=== PATIENT | male | born 1955 | race Caucasian/White ===

== ENCOUNTER 2024-07-01 19:13 | Inpatient (IN) | payer MEDICARE, MEDICAID ==
[~2024-07-01] VITALS: Ht 172.7 cm; Wt 96.0 kg
--- NOTE | 2024-07-01 19:56 | ED.PDOC ---
General HPI Comments 69 year old male brought in by EMS presents to the ED with a chief complaint of hematuria onset 2 days. Patient states he has been experiencing hematuria for the past 2 days, began experiencing dysuria with burning sensation today. Patient has a suprapubic catheter in place for the past 3 years due to frequent UTIs related to a previous indwelling urethral catheter. Patient also states he is currently on eliquis due to DVT on RT leg. PMHx DVT, prostate cancer. Denies chest pain, shortness of breath, nausea, vomiting, diarrhea, dizziness, headache. No other symptoms or modifying factors present at this time. Chief Complaint: Urinary Time Seen by MD: 19:21 Reviewed notes: Medications, Allergies Allergies: Coded Allergies: Acetaminophen (Verified Allergy, Unknown, 07/01/24) Diphenhydramine (Verified Allergy, Unknown, 07/01/24) Hydrocodone (Verified Allergy, Unknown, 07/01/24) Oxycodone (Verified Allergy, Unknown, 07/01/24) Propoxyphene (Verified Allergy, Unknown, 07/01/24) Information Source: Patient, Emergency Med Personnel Mode of Arrival: EMS Severity: Moderate Timing: Days Duration: Since onset Prehospital treatment: None Onset: Spontaneous Symptoms: Dysuria, Hematuria History of: UTI, Suprapubic catheter Location: Suprapubic Penile discharge: None Modifying factors: None associated signs and symptoms: Dysuria, Hematuria Past Medical History PAST MEDICAL HISTORY: Cancer (prostate) Past Medical History (Other): DVT Surgical History: Appendectomy, Pacemaker, Tonsillectomy Surgical History (Other): suprapubic catheter Family History Family History: Unknown Social History Smoker: Non-Smoker Alcohol: Denies ETOH Use Drugs: Denies Drug Use Lives In: Home Constitutional: denies: chills, diaphoresis, fatigue, fever, malaise, sweats, weakness, others EENTM: denies: blurred vision, double vision, ear bleeding, ear discharge, ear drainage, ear pain, ear ringing, eye pain, eye redness, hearing loss, mouth pain, mouth swelling, nasal discharge, nose bleeding, nose congestion, nose pain, photophobia, tearing, throat pain, throat swelling, voice changes, others Respiratory: denies: cough, hemoptysis, orthopnea, SOB at rest, shortness of breath, SOB with excertion, stridor, wheezing, others Cardiovascular: denies: chest pain, dizzy spells, diaphoresis, Dyspnea on exertion, edema, irregular heart beat, left arm pain, lightheadedness, palpitations, PND, syncope, others Gastrointestinal: denies: abdomen distended, abdominal pain, blood streaked bowels, constipated, diarrhea, dysphagia, difficulty swallowing, hematemesis, melena, nausea, poor appetite, poor fluid intake, rectal bleeding, rectal pain, vomiting, others Genitourinary: reports: burning, dysuria, hematuria, pain; denies: flank pain, frequency, incontinence, penile discharge, penile sore, testicle pain, testicle swelling, urgency, others Neurological: denies: dizziness, fainting, headache, left sided numbness, left sided weakness, numbness, paresthesia, pre-existing deficit, right sided numbness, right sided weakness, seizure, speech problems, tingling, tremors, weakness, others Musculoskeletal: reports: others (RT leg swelling); denies: back pain, gout, joint pain, joint swelling, muscle pain, muscle stiffness, neck pain Integumetry: denies: bruises, change in color, change in hair/nails, dryness, laceration, lesions, lumps, rash, wounds, others Allergic/Immunocompromised: denies: Difficulty Healing, Frequent Infections, Hives, Itching, others Hematologic/Lymphatic: denies: anemia, blood clots, easy bleeding, easy bruising, swollen glands, others Endocrine: denies: excessive hunger, excessive sweating, excessive thirst, excessive urination, flushing, intolerance to cold, intolerance to heat, unexplained weight gain, unexplained weight loss, others Psychiatric: denies: anxiety, bipolar disorder, depression, hopeless, panic disorder, schizophrenia, sleepless, suicidal, others All Other Systems: Reviewed and Negative Physical Exam General Appearance: No Apparent Distress HEENT: Other, NOT DONE (Pupils and face symmetric, moist mucous membranes) Neck: Full Range of Motion, Non-Tender, Normal Inspection, Supple Respiratory: Lungs Clear, No Accessory Muscle Use, No Respiratory Distress, Normal Breath Sounds Cardiovascular: No JVD, Tachycardia Breast Exam: Deferred Gastrointestinal: Soft, Tenderness (Suprapubic and bilateral flank) Genitalia: Deferred Pelvic: Deferred Rectal: Deferred Extremities: Leg edema, Normal inspection, Normal range of motion, Pedal edema Neurologic: Alert (Oriented x4), Normal Affect, Normal Mood, Other (Moves all extremities. No gross focal deficit.) Cerebellar Function: NOT DONE Reflexes: NOT DONE Skin: Dry, Normal Color, Warm Lymphatic: NOT DONE Was a procedure done? Was a procedure done?: No Differential Diagnosis Kidney stone (Female): Bowel obstruction, Pyelonephritis, Renal failure, Urolithiasis Kidney stone (Male): Appendicitis train, Renal infarction Penile/Scrotal: UTI Urinary Problem (Male): Prostatitis, Urethritis X-Ray, Labs, Meds, VS Vital Signs Date Time Temp Pulse Resp B/P (MAP) Pulse Ox O2 Delivery O2 Flow Rate FiO2 07/01/24 21:45 97.5 60 16 110/61 (77) 98 97.5 07/01/24 21:45 60 16 98 Room Air* 0 21 07/01/24 19:13 98.5 71 71 132/62 (85) 100 Lab Test 07/01/24 21:17 Range/Units White Blood Count 7.0 4.4-10.8 10^3/uL Red Blood Count 4.34 L 4.5-5.90 10^6/uL Hemoglobin 14.4 13.5-17.5 g/dL Hematocrit 42.4 41.0-53.0 % Mean Corpuscular Volume 97.7 80.0-100.0 fL Mean Corpuscular Hemoglobin 33.3 H 28.0-32.0 pg Mean Corpuscular Hemoglobin Concent 34.1 32.0-36.0 g/dL Red Cell Distribution Width 12.6 11.8-14.3 % Platelet Count 213 140-450 10^3/uL Mean Platelet Volume 8.3 6.9-10.8 fL Neutrophils (%) (Auto) 62.0 37.0-80.0 % Lymphocytes (%) (Auto) 26.1 10.0-50.0 % Monocytes (%) (Auto) 9.0 0.0-12.0 % Eosinophils (%) (Auto) 1.7 0.0-7.0 % Basophils (%) (Auto) 1.2 0.0-2.0 % Neutrophils # (Auto) 4.4 1.6-8.6 10 ^3/uL Lymphocytes # (Auto) 1.8 0.4-5.4 10 ^3/uL Monocytes # (Auto) 0.6 0-1.3 10 ^3/uL Eosinophils # (Auto) 0.1 0-0.8 10 ^3/uL Basophils # (Auto) 0.1 0-0.2 10 ^3/uL Nucleated Red Blood Cells 0.1 % Prothrombin Time 12.2 H 9.3-11.8 sec Prothrombin Time INR 1.17 H 0.9-1.15 Activated Partial Thromboplast Time 35.9 H 24.5-34.5 SEC Sodium Level 139 136-145 mmol/L Potassium Level 2.4 *L 3.5-5.1 mmol/L Chloride Level 102 98-107 mmol/L Carbon Dioxide Level 28 20-31 mmol/L Anion Gap 9 5-15 Blood Urea Nitrogen 10 9-23 mg/dL Creatinine 0.92 0.700-1.30 mg/dL Glomerular Filtration Rate Calc 89 >90 mL/min BUN/Creatinine Ratio 10.9 10.0-20.0 Serum Glucose 145 H 74-106 mg/dL Lactic Acid Level 1.8 0.4-2.0 mmol/L Calcium Level 8.9 8.7-10.4 mg/dL Magnesium Level 1.7 1.6-2.6 mg/dL Total Bilirubin 0.9 0.2-1.0 mg/dL Aspartate Amino Transferase (AST) 23 13-40 U/L Alanine Aminotransferase (ALT) 19 7-40 U/L Alkaline Phosphatase 91 46-116 U/L B-Type Natriuretic Peptide 84.95 0-100 pg/mL Total Protein 6.3 5.7-8.2 g/dL Albumin 4.0 3.2-4.8 g/dL Thyroid Stimulating Hormone (TSH) 0.29 L 0.55-4.78 uIU/mL Current Medications Medications (Trade) Dose Ordered Sig/Katharina Route Start Time Stop Time Status Last Admin Tramadol HCl (Ultram) 50 mg ONCE ONCE PO 07/01/24 20:00 07/01/24 20:01 DC 07/01/24 22:44 Ceftriaxone Sodium 50 ml @ 100 mls/hr ONCE ONCE IV 07/01/24 20:00 07/01/24 20:29 DC 07/01/24 22:44 Sodium Chloride 1,000 ml @ 1,000 mls/hr Q1H ONCE IV 07/01/24 20:00 07/01/24 20:59 DC 07/01/24 22:44 Potassium Bicarbonate (Klor-Con/Ef) 50 meq ONCE ONCE PO 07/01/24 22:15 07/01/24 22:20 DC 07/01/24 22:45 Potassium Chloride 100 ml @ 50 mls/hr ONCE ONCE IV 07/01/24 22:15 07/02/24 00:14 DC 07/01/24 23:16 ORDERING PHYSICIAN: LIBERTAD HARKINS MD PROCEDURE(s): ABPL - CT AB PEL WO CON-NO ORAL OR IV REASON: hematuria, suprapubic pain ORDER NUMBER(s): [id number], ACCESSION NUMBER(s): [id number] Exam: CT CT AB PEL WO CON-NO ORAL OR IV History: hematuria, suprapubic pain Comparison Study: None TECHNIQUE: Multidetector CT of the abdomen and pelvis was performed from lung bases to pubic symphysis. Imaging was performed without IV contrast. Axial, coronal, and sagittal multiplanar reformats were obtained from the axial data set by the technologist. RADIATION DOSE: DLP 636.43 mGy.cm; CTDI vol 9.79 mGy. Findings: Lungs: The lung bases are clear. Heart: No cardiomegaly or pericardial effusion. Liver: Unremarkable. Gallbladder: Unremarkable. Spleen: Unremarkable Pancreas: Unremarkable Adrenals: Unremarkable Kidneys: Right renal cysts. Nonobstructive left nephrolithiasis. GI tract: Unremarkable : Suprapubic catheter. Urinary bladder is otherwise unremarkable. Vasculature: Mild aortoiliac atherosclerosis. Lymphadenopathy: Absent Peritoneum: No ascites Musculoskeletal: Mild multilevel degenerative changes of the thoracolumbar spine. Soft tissues: Left lower quadrant pump generator with two catheters. One traverses the spinal canal superiorly. The second is disconnected in the posterior soft tissues with the intraspinal portion terminating at L2. Impression: 1. No acute abdominopelvic abnormalities. 2. Suprapubic catheter within an unremarkable urinary bladder. 3. Left lower quadrant pump generator with two catheters. One traverses the spinal canal superiorly. The second is disconnected in the posterior soft tissues with the intraspinal portion terminating at L2. Correlate for proper functionality. ATED BY: MELISSA CRAIG DO DICTATED DATE/TIME: 07/01/242120 SIGNED BY: MLEISSA CRAIG DO SIGNED DATE/TIME: 07/01/242120 X-Ray, Labs, Meds, VS Comment 69-year-old male with history of prostate cancer and VTE and indwelling suprapubic catheter complaining of suprapubic pain, dysuria and hematuria Vitals unremarkable Exam remarkable for suprapubic tenderness Rhythm strip independently interpreted by me: Sinus rhythm, rate 71, no ectopy. CT abdomen and pelvis Impression: 1. No acute abdominopelvic abnormalities. 2. Suprapubic catheter within an unremarkable urinary bladder. 3. Left lower quadrant pump generator with two catheters. One traverses the spinal canal superiorly. The second is disconnected in the posterior soft tissues with the intraspinal portion terminating at L2. Correlate for proper functionality. CBC unremarkable, metabolic panel remarkable for potassium 2.8, lactate normal, UA abnormal consistent with UTI Patient treated with the following in the ED: 1 L 0.9 normal saline IV bolus, Rocephin 1 g IV, tramadol 50 mg p.o., potassium effervescent 50 mEq p.o., K rider 20 mEq IV On re-evaluation, patient states pain has improved. Vitals were stable. Plan is to admit the patient for IV antibiotics and electrolyte correction Time of 1ST Reevaluation: 19:51 Reevaluation 1ST: Unchanged Patient Education/Counseling: Diagnosis, Treatment, Prognosis Family Education/Counseling: No Family Present Additional Information The following tests were ordered, and results were reviewed by me: CBC, CMP, UA, CT AB PEL WO CON, BLOOD CULTURE, URINE BACTERIAL CULTURE, LA W/ REFLEX I reviewed and agreed with the following test results read by other providers: CT AB PEL WO CON Additional Information was gathered from interviewing the following independent historians: EMS I discussed treatment and results with medical personnel and: patient Departure 1 Departure Time of Disposition: 22:09 Impression: Primary Impression: UTI (urinary tract infection) Qualified Codes: N39.0 - Urinary tract infection, site not specified; R31.9 - Hematuria, unspecified Additional Impression: Hypokalemia Disposition: ADMITTED INPATIENT Admit to: Med Surg Condition: Guarded Critical Care Note Critical Care Time?: No Stability Stability form required: No Heart Score Heart Score: Heart Score Response (Comments) Value History N/A 0 EKG N/A 0 Age N/A 0 Risk Factors N/A 0 Troponin N/A 0 Total 0 I personally scribed for LIBERTAD HARKINS MD ([email or web address]) on 07/01/24 at 19:56. Electronically submitted by Karen Loyd ([email or web address]). I personally scribed for LIBERTAD HARKINS MD ([email or web address]) on 07/01/24 at 20:12. Electronically submitted by Karen Loyd ([email or web address]). I personally scribed for LIBERTAD HARKINS MD ([email or web address]) on 07/01/24 at 21:45. Electronically submitted by Karen Loyd ([email or web address]). LIBERTAD HARKINS MD Jul 01, 2024 19:56
--- NOTE | 2024-07-01 21:23 | DVH ---
Exam: CT CT AB PEL WO CON-NO ORAL OR IV History: hematuria, suprapubic pain Comparison Study: None TECHNIQUE: Multidetector CT of the abdomen and pelvis was performed from lung bases to pubic symphysi s. Imaging was performed without IV contrast. Axial, coronal, and sagittal multiplanar reformats were obtained from the axial data set by the technologist. RADIATION DOSE: DLP 636.43 mGy.cm; CTDI vol 9.79 mGy. Findings: Lungs: The lung bases are clear. Heart: No cardiomegaly or pericardial effusion. Liver: Unremarkable. Gallbladder: Unremarkable. Spleen: Unremarkable Pancreas: Unremarkable Adrenals: Unremarkable Kidneys: Right renal cysts. Nonobstructive left nephrolithiasis. GI tract: Unremarkable : Suprapubic catheter. Urinary bladder is otherwise unremarkable. Vasculature: Mild aortoiliac atherosclerosis. Lymphadenopathy: Absent Peritoneum: No ascites Musculoskeletal: Mild multilevel degenerative changes of the thoracolumbar spine. Soft tissues: Left lower quadrant pump generator with two catheters. One traverses the spinal canal s uperiorly. The second is disconnected in the posterior soft tissues with the intraspinal portion term inating at L2. Impression: 1. No acute abdominopelvic abnormalities. 2. Suprapubic catheter within an unremarkable urinary bladder. 3. Left lower quadrant pump generator with two catheters. One traverses the spinal canal superiorly. The second is disconnected in the posterior soft tissues with the intraspinal portion terminating at L2. Correlate for proper functionality.
[2024-07-01 21:32] LABS: Basophils # (auto) 0.1 10 ^3/uL (0-0.2); Basophils % (auto) 1.2 % (0.0-2.0); Eosinophils # (auto) 0.1 10 ^3/uL (0-0.8); Eosinophils % (auto) 1.7 % (0.0-7.0); Hematocrit 42.4 % (41.0-53.0); Hemoglobin 14.4 g/dL (13.5-17.5); Lymphocytes # (auto) 1.8 10 ^3/uL (0.4-5.4); Lymphocytes % (auto) 26.1 % (10.0-50.0); Mean Corpuscular Hemoglobin 33.3 pg (28.0-32.0); Mean Corpuscular Hgb Conc. 34.1 g/dL (32.0-36.0); Mean Corpuscular Volume 97.7 fL (80.0-100.0); Monocytes # (auto) 0.6 10 ^3/uL (0-1.3); Neutrophils # (auto) 4.4 10 ^3/uL (1.6-8.6); Nucleated Red Blood Cells % 0.1 %; Platelet Count (auto) 213 10^3/uL (140-450); Red Blood Cells 4.34 10^6/uL (4.5-5.90); Red Cell Distribution Width 12.6 % (11.8-14.3)
[2024-07-01 21:42] LABS: Alanine Aminotransferase 19 U/L (7-40); Alkaline Phosphatase 91 U/L (46-116); Anion Gap 9 (5-15); Aspartate Aminotransferase 23 U/L (13-40); BUN/Creatinine Ratio 10.9 (10.0-20.0); Blood Urea Nitrogen 10 mg/dL (9-23); Calcium 8.9 mg/dL (8.7-10.4); Carbon Dioxide 28 mmol/L (20-31); Chloride 102 mmol/L (98-107); Sodium 139 mmol/L (136-145)
[2024-07-01 21:43] LABS: Bilirubin, Total 0.9 mg/dL (0.2-1.0); Total Protein 6.3 g/dL (5.7-8.2)
[2024-07-01 21:45] VITALS: PULSE 60; RESP 16; O2SAT 98
[2024-07-01 21:46] LABS: Glucose 145 mg/dL (74-106)
[2024-07-01 21:47] LABS: Potassium 2.4 mmol/L (3.5-5.1)
[2024-07-01] MEDS: traMADol HCL 50 MG TAB PO ONE (22:44)
[2024-07-01] MEDS: SODIUM CHLORIDE 0.9% 1,000 ML IV ONE (22:44)
[2024-07-01] MEDS: cefTRIAXone 1GM/50ML D5W 50 ML IV ONE (22:44)
[2024-07-01] MEDS: POTASSIUM EFFERVESENT TAB 25 MEQ PO ONE (22:45)
[2024-07-01] MEDS ORDERED: NITROGLYCERIN 0.4 MG SL TAB SL PRN (22:45)
[2024-07-01] MEDS ORDERED: MORPHINE SULFATE INJ 2 MG/ml SYRG IV PRN (22:45)
[2024-07-01] MEDS: POTASSIUM CHL 20MEQ/100ML 100 ML IV ONE (23:16)
[2024-07-01] MEDS: POTASSIUM CHL 20MEQ/100ML 100 ML IV SCH (23:30)
[2024-07-01 23:49] LABS: INR 1.17 (0.9-1.15); Partial Thromboplastin Time 35.9 SEC (24.5-34.5); Prothrombin Time 12.2 sec (9.3-11.8)
--- NOTE | 2024-07-02 00:03 | DVH ---
Bilateral lower extremity venous duplex Clinical History: h/o DVT Comparison: None available Technique: Duplex Doppler evaluation of the deep venous systems of both lower extremities from the common femora l veins to the popliteal veins including color Doppler and spectral/pulsed waveform analysis was perf ormed. Findings: RIGHT SIDE: The common femoral vein demonstrates appropriate compressibility and waveform variability. There is compressibility/patency of the great saphenous vein at the proximal thigh. The femoral vein demonstrates appropriate compressibility and waveform variability. The deep femoral vein demonstrates appropriate compressibility and waveform variability. The popliteal vein demonstrates appropriate compressibility and waveform variability. There is normal compressibility at the tibioperoneal trunk. LEFT SIDE: The common femoral vein demonstrates appropriate compressibility and waveform variability. There is compressibility/patency of the great saphenous vein at the proximal thigh. The femoral vein demonstrates appropriate compressibility and waveform variability. The deep femoral vein demonstrates appropriate compressibility and waveform variability. The popliteal vein demonstrates appropriate compressibility and waveform variability. There is normal compressibility at the tibioperoneal trunk. Impression: 1. No right or left femoropopliteal venous thrombosis.
[2024-07-02 00:08] LABS: Urine Bacteria None Seen /hpf (None Seen)
[2024-07-02] MEDS: POTASSIUM EFFERVESENT TAB 25 MEQ PO ONE (00:33)
[2024-07-02 00:34] LABS: Opiate Scree,Urine Neg (NEGATIVE); Phencyclidine Screen, Urine Neg (NEGATIVE)
[2024-07-02 00:36] LABS: Amphetamine Screen, Urine Neg (NEGATIVE); Barbiturate Scree,Urine Neg (NEGATIVE); Benzodiazephine Screen, Urine Neg (NEGATIVE); Cannabinoid Screen, Urine Neg (NEGATIVE); Cocaine Screen, Urine Neg (NEGATIVE)
[2024-07-02 00:40] LABS: Urine Blood 3+ /uL (Negative); Urine Clarity Ex.Turbid (Clear); Urine Color Dark-Red (Yellow); Urine Protein, UAD 2+ (Negative); Urine Specific Gravity 1.026 (1.001-1.035); Urine Squamous Epithelial Cell None Seen /hpf (<5); Urine Urobilinogen Normal (Negative); Urine WBC 1048 /HPF (0-3); Urine pH 6.5 (5.0-9.0)
--- NOTE | 2024-07-02 00:58 | DVHHPRES ---
History of Present Illness Resident Creating Document: SARA HYMAN RESIDENT History of Present Illness Adryan Nowak is a 69-year-old male with a PMH of hypertension, CHF, pacemaker, DE x3 FELICITY, DVT, Podiatry, status post resection, prostate cancer status post radiation presented to the ED with the chief complaints of hematuria and burning micturition since 1 week prior to admission. Patient has suprapubic catheter in place but it is not functional due to urologist closed the port and advised, encouraged the patient to urinate through urethra. Initially he was doing fine med for past 1 week patient has been hematuria, burning sensation and difficulty urination patient brought him to visit ED. patient does report he have chronic right leg DVT for which he is on Eliquis since 2018 but recently the leg is more swollen and painful. On my assessment patient denies fever, nausea, vomiting, diaphoresis, abdominal pain pain and other acute associated symptoms. PMH: HTN since 17 years old(metoprolol ), 2 times DE x3 FELICITY at 44 years old, thyroid tumor status post resection at 27 years old, pacemaker 11 years ago, DVT since 2018 on Eliquis, prostate cancer status post radiation 2 years back PSH: Thyroidectomy, pacemaker implantation Family history: Prostate cancer and a DE in brother, AFib in father Social history: Lives with family. Denies smoking, alcohol and other drug abuse Allergies: Acetaminophen diphenhydramine hydrocodone, oxycodone, propoxyphene Home medications: Levothyroxine 150, omeprazole 20, aspirin 81, oxybutynin chloride 5, metoprolol tartrate 25 mg, furosemide 20 mg, tizanidine 2, KCl 10 mEq, Lipitor 40, digoxin 125, Eliquis 5 mg, hydroxyzine 25 mg, tramadol 50 mg Review of Systems Review of Systems Patient seen and examined at the bedside. Patient currently having lower abdominal pain, right lower extremity pain, edema. Ordered DVT scan. Patient started on Rocephin for now. Pending urinalysis and urine cultures. Constitutional: Yes: Weakness, Malaise Eyes: No: Pain, Vision change, Conjunctivae inflammation, Eyelid inflammation, Other, Redness ENT: No: Ear pain, Ear discharge, Nose pain, Nose discharge, Nose congestion, Mouth pain, Mouth swelling, Throat pain, Throat swelling, Other Respiratory: No: Cough, Dry, Shortness of breath, SOB with excertion, Wheezing, Hemoptysis, Pleuritic Pain, Sputum, Wheezing, Other Cardiovascular: Edema; No: Chest Pain, Palpitations, Orthopnea, Paroxysmal Noc. Dyspnea, Lt Headedness, Other Gastrointestinal: No: Nausea, Vomiting, Abdominal Pain, Diarrhea, Constipation, Melena, Hematochezia, Other Genitourinary: Dysuria, Frequency, Hematuria Musculoskeletal: No: other, neck pain, shoulder pain, arm pain, back pain, hand pain, leg pain, foot pain Skin: No: Rash, Lesions, Jaundice, Bruising, Other Neurological: No: Weakness, Numbness, Incoordination, Change in speech, Confusion, Seizures, Other Allergies: Coded Allergies: Acetaminophen (Verified Allergy, Unknown, 07/01/24) Diphenhydramine (Verified Allergy, Unknown, 07/01/24) Hydrocodone (Verified Allergy, Unknown, 07/01/24) Oxycodone (Verified Allergy, Unknown, 07/01/24) Propoxyphene (Verified Allergy, Unknown, 07/01/24) Medications Current Medications Medications Dose Ordered Sig/Katharina Route Start Time Stop Time Status Last Admin Dose Admin Sodium Chloride 10 ml Q8HR IV 07/02/24 06:00 Enoxaparin Sodium 40 mg DAILY SC 07/02/24 10:00 Acetaminophen 650 mg Q6HP PRN PO 07/01/24 22:45 UNV Morphine Sulfate 2 mg Q4HPRN PRN IV 07/01/24 22:45 UNV Nitroglycerin 0.4 mg Q5MINP PRN SL 07/01/24 22:45 Morphine Sulfate 2 mg Q30M PRN IV 07/01/24 22:45 UNV Pantoprazole Sodium 40 mg DAILY IV 07/02/24 10:00 Ceftriaxone Sodium 50 ml @ 100 mls/hr DAILY@2100 IV 07/02/24 21:00 Potassium Chloride 100 ml @ 50 mls/hr Q2H IV 07/02/24 00:15 07/02/24 04:14 UNV Potassium Chloride/Sodium Chloride 1,000 ml @ 75 mls/hr [id number] IV 07/02/24 00:15 UNV Exam Vital Signs Vital Signs Date Time Temp Pulse Resp B/P (MAP) Pulse Ox O2 Delivery O2 Flow Rate FiO2 07/01/24 21:45 97.5 60 16 110/61 (77) 98 97.5 07/01/24 21:45 Room Air* 0 21 Exam Pt is lying on bed General Appearance: Alert, Oriented X3, Cooperative, moderate distress due to pain HEENT: Atraumatic, Mucous membranes moist/pink Respiratory: Clear to auscultation, Normal air movement Cardiovascular: Regular rate, Normal S1, Normal S2 Abdominal: Active bowel sounds, Soft, no distention, mild suprapubic tenderness Extremities: Swollen, red, warmth, tender, pitting edema in RLE. 2+ pitting edema in LLE Skin: No Significant rash, except past surgical scars Neuro: Normal speech, sensorimotor deficits none Psych/Mental Status: Mental status NL, Mood NL Nurse was there as sharperone during examination Labs/Xrays Labs Test 07/01/24 23:58 07/01/24 23:27 07/01/24 21:17 Range/Units Urine Color Dark-red Yellow Urine Clarity Ex.turbid Clear Urine pH 6.5 5.0-9.0 Urine Specific [place] 1.026 1.001-1.035 Urine Protein 2+ H Negative Urine Ketones Negative Negative Urine Blood 3+ H Negative /uL Urine Nitrite Negative Negative Urine Bilirubin Negative Negative Urine Urobilinogen Normal Negative mg/dL Urine Leukocyte Esterase Trace Negative /uL Urine RBC [id number] 0 - 3 /hpf Urine Microscopic WBC 1048 H 0-3 /HPF Urine Squamous Epithelial Cells None seen <5 /hpf Urine Bacteria None seen None Seen /hpf Urine Glucose Normal Normal mg/dL Urine Opiates Screen Neg NEGATIVE Urine Fentanyl Screen Pos NEGATIVE Urine Barbiturates Screen Neg NEGATIVE Urine Phencyclidine Screen Neg NEGATIVE Urine Amphetamines Screen Neg NEGATIVE Urine Benzodiazepines Screen Neg NEGATIVE Urine Cocaine Screen Neg NEGATIVE Urine Cannabinoids Screen Neg NEGATIVE White Blood Count 7.0 4.4-10.8 10^3/uL Red Blood Count 4.34 L 4.5-5.90 10^6/uL Hemoglobin 14.4 13.5-17.5 g/dL Hematocrit 42.4 41.0-53.0 % Mean Corpuscular Volume 97.7 80.0-100.0 fL Mean Corpuscular Hemoglobin 33.3 H 28.0-32.0 pg Mean Corpuscular Hemoglobin Concent 34.1 32.0-36.0 g/dL Red Cell Distribution Width 12.6 11.8-14.3 % Platelet Count 213 140-450 10^3/uL Mean Platelet Volume 8.3 6.9-10.8 fL Neutrophils (%) (Auto) 62.0 37.0-80.0 % Lymphocytes (%) (Auto) 26.1 10.0-50.0 % Monocytes (%) (Auto) 9.0 0.0-12.0 % Eosinophils (%) (Auto) 1.7 0.0-7.0 % Basophils (%) (Auto) 1.2 0.0-2.0 % Neutrophils # (Auto) 4.4 1.6-8.6 10 ^3/uL Lymphocytes # (Auto) 1.8 0.4-5.4 10 ^3/uL Monocytes # (Auto) 0.6 0-1.3 10 ^3/uL Eosinophils # (Auto) 0.1 0-0.8 10 ^3/uL Basophils # (Auto) 0.1 0-0.2 10 ^3/uL Nucleated Red Blood Cells 0.1 % Prothrombin Time 12.2 H 9.3-11.8 sec Prothrombin Time INR 1.17 H 0.9-1.15 Activated Partial Thromboplast Time 35.9 H 24.5-34.5 SEC Sodium Level 139 136-145 mmol/L Potassium Level 2.4 *L 3.5-5.1 mmol/L Chloride Level 102 98-107 mmol/L Carbon Dioxide Level 28 20-31 mmol/L Anion Gap 9 5-15 Blood Urea Nitrogen 10 9-23 mg/dL Creatinine 0.92 0.700-1.30 mg/dL Glomerular Filtration Rate Calc 89 >90 mL/min BUN/Creatinine Ratio 10.9 10.0-20.0 Serum Glucose 145 H 74-106 mg/dL Lactic Acid Level 1.8 0.4-2.0 mmol/L Calcium Level 8.9 8.7-10.4 mg/dL Magnesium Level 1.7 1.6-2.6 mg/dL Total Bilirubin 0.9 0.2-1.0 mg/dL Aspartate Amino Transferase (AST) 23 13-40 U/L Alanine Aminotransferase (ALT) 19 7-40 U/L Alkaline Phosphatase 91 46-116 U/L B-Type Natriuretic Peptide 84.95 0-100 pg/mL Total Protein 6.3 5.7-8.2 g/dL Albumin 4.0 3.2-4.8 g/dL Thyroid Stimulating Hormone (TSH) 0.29 L 0.55-4.78 uIU/mL Assessment/Plan Assessment/Plan # hematuria # acute complicated UTI -ordered urinalysis -ordered urine culture, pending -currently giving Rocephin -consulted Urology # severe hypokalemia -monitor lab -currently under correction # history of prostate cancer status post radiation # H/o thyroid tumor status post resection -currently on levothyroxine # CHF unspecified type -ordered BNP, pending # H/o DVT -hold Eliquis for now -venous can showed no signs of DVT PUD PPX: Protonix VTE PPX: Lovenox Diet: Cardiac diet Goals of care discussed with the patient for more than 29 minutes: Full code sta tus Case discussed with Dr. Branch, patient and nurse Plan discussed with: Patient My Orders Orders - SARA HYMAN RESIDENT Procedure Category Date Status Time Admit ADMIT 07/01/24 Transmitted 22:41 Allergies NIMCO 07/01/24 In Process 22:41 Code Status CODE 07/01/24 Transmitted 22:41 Sodium Chloride Lock PHA 07/02/24 In Process (Saline Lock Ns) 06:00 Enoxaparin Sodium PHA 07/02/24 In Process (Lovenox) 10:00 Complete Blood Count LAB 07/02/24 Logged 04:00 Comprehensive LAB 07/02/24 Logged Metabolic Panel 04:00 Cardiac DIET 07/02/24 Transmitted Diet-2gna,Lofat,Lochol Breakfast Condition: Stable NIMCO 07/01/24 In Process 22:41 Acetaminophen Tablet PHA 07/01/24 In Process (Tylenol Tablet) 22:45 Morphine Sulfate PHA 07/01/24 In Process Injection 22:45 Nitroglycerin PHA 07/01/24 In Process Sublingual (Ntrostat 22:45 Morphine Sulfate PHA 07/01/24 In Process Injection 22:45 Oxygen By Nasal RT 07/01/24 Transmitted Cannula 22:41 Stat Ekg For Chest NIMCO 07/01/24 In Process Pain 22:41 Notify Of Changes NIMCO 07/01/24 In Process From Base 22:41 Sawmill Supervisor For NIMCO 07/01/24 In Process 24 Hours 22:41 Emergency Dysrhythmia NIMCO 07/01/24 In Process Protocol 22:41 Rhythm Strips Once NIMCO 07/01/24 In Process Every Shift 22:41 Bilat Lower Dvt US 07/01/24 Resulted 22:51 Rapid Influenza A&B LAB 07/01/24 Logged 22:51 Pantoprazole PHA 07/02/24 In Process (Protonix) 10:00 Ceftriaxone 1gm/50ml PHA 07/02/24 In Process D5w (Rocephin) 21:00 Potassium Chl PHA 07/02/24 In Process 20meq/100ml 00:15 Sod Chl 0.9%/ Kcl PHA 07/02/24 In Process 40meq 00:15 * Urology Consult CONS 07/02/24 Transmitted 00:08 Levothyroxine Tablet PHA 07/02/24 In Process (Synthroid Tablet) 06:00 Date of Service: Jul 01, 2024 Billing Provider: YAZMIN BRANCH MD Common Visit Codes: [id number] INP/OBS CARE (MOD), [id number] INP/OBS CARE (HIGH) SARA HYMAN RESIDENT Jul 02, 2024 00:58 YAZMIN BRANCH MD Jul 03, 2024 00:36
[2024-07-02] MEDS: MORPHINE SULFATE INJ 2 MG/ml SYRG IV PRN (01:20)
[2024-07-02] MEDS: hydrOXYzine 25 MG TAB or CAP PO ONE (04:20)
[2024-07-02 05:16] LABS: Rapid Influenza A Negative (Negative); Rapid Influenza B Negative (Negative)
[2024-07-02] MEDS: SODIUM CHLOR 0.9% PF (SALINE LOCK) 10ML VIAL/SYR IV SCH (06:07)
[2024-07-02] MEDS: LEVOTHYROXINE SODIUM 50 MCG TAB PO SCH (06:16)
[2024-07-02] MEDS: SOD CHL 0.9%/ KCL 40MEQ 1,000 ML IV SCH (06:34)
[2024-07-02 07:11] LABS: Basophils # (auto) 0.1 10 ^3/uL (0-0.2); Basophils % (auto) 0.9 % (0.0-2.0); Eosinophils # (auto) 0.1 10 ^3/uL (0-0.8); Eosinophils % (auto) 0.8 % (0.0-7.0); Hematocrit 39.5 % (41.0-53.0); Hemoglobin 13.5 g/dL (13.5-17.5); Lymphocytes # (auto) 1.7 10 ^3/uL (0.4-5.4); Lymphocytes % (auto) 22.1 % (10.0-50.0); Mean Corpuscular Hemoglobin 33.2 pg (28.0-32.0); Mean Corpuscular Hgb Conc. 34.2 g/dL (32.0-36.0); Mean Corpuscular Volume 97.1 fL (80.0-100.0); Monocytes # (auto) 0.7 10 ^3/uL (0-1.3); Monocytes % (auto) 9.2 % (0.0-12.0); Neutrophils # (auto) 5.1 10 ^3/uL (1.6-8.6); Nucleated Red Blood Cells % 0.2 %; Platelet Count (auto) 188 10^3/uL (140-450); Red Blood Cells 4.07 10^6/uL (4.5-5.90); Red Cell Distribution Width 12.7 % (11.8-14.3); White Blood Cell 7.6 10^3/uL (4.4-10.8)
[2024-07-02 07:26] LABS: Alanine Aminotransferase 16 U/L (7-40); Alkaline Phosphatase 70 U/L (46-116); Anion Gap 11 (5-15); BUN/Creatinine Ratio 11.4 (10.0-20.0); Blood Urea Nitrogen 9 mg/dL (9-23); Carbon Dioxide 23 mmol/L (20-31); Chloride 107 mmol/L (98-107); Sodium 141 mmol/L (136-145)
[2024-07-02 07:27] LABS: Albumin 3.7 g/dL (3.2-4.8); Aspartate Aminotransferase 26 U/L (13-40); Bilirubin, Total 1.1 mg/dL (0.2-1.0); Calcium 8.6 mg/dL (8.7-10.4); Glucose 125 mg/dL (74-106); Potassium 3.2 mmol/L (3.5-5.1)
[2024-07-02 07:28] LABS: Total Protein 5.8 g/dL (5.7-8.2)
[2024-07-02 07:35] VITALS: PULSE 64; RESP 21; O2SAT 99
[2024-07-02] MEDS: MAGNESIUM SULFATE 1GM/100ML 100 ML IV ONE (09:23)
[2024-07-02] MEDS: PANTOPRAZOLE 40 MG/10 ML VIAL INJ IV SCH (10:27)
[2024-07-02] MEDS: ENOXAPARIN SOD 40 MG/0.4 ML SYRINGE SC SCH (10:28)
[2024-07-02 14:50] VITALS: BP 143/60; PULSE 101; RESP 16; TEMP 98.4; O2SAT 98
--- NOTE | 2024-07-02 16:23 | DVHINCON2 ---
Date of service: Jul 02, 2024 Referring Physician hospitalist Reason for Consultation hematuria History of Present Illness History Source: Patient, RN Notes, MD Notes, Old Records Exam Limitations: No limitations HPI 69 year old male brought in by EMS presents to the ED with a chief complaint of hematuria onset 2 days. Patient states he has been experiencing hematuria for the past 2 days, began experiencing dysuria with burning sensation today. Patient has a suprapubic catheter in place for the past 3 years due to frequent UTIs related to a previous indwelling urethral catheter. Patient also states he is currently on eliquis due to DVT on RT leg. PMHx DVT, prostate cancer. Denies chest pain, shortness of breath, nausea, vomiting, diarrhea, dizziness, headache. No other symptoms or modifying factors present at this time. Past Medical History Renal/: UTI, Hematuria, Prostate cancer Review of Systems Genitourinary: Hematuria, Pain H&P Exam Vital Signs Vital Signs Date Time Temp Pulse Resp B/P (MAP) Pulse Ox O2 Delivery O2 Flow Rate FiO2 07/02/24 14:50 98.4 101 16 143/60 (87) 98 98.4 07/02/24 07:35 Room Air* 0 21 General Appeara: Well developed, Well nourished, Normal Appearance Neuro/Mental St: Alert, Oriented Appearance: Appropriate appearance, Appropriate insight Eye contact/ Speech: Cooperative, Good eye contact, Normal speech Skin Exam: Normal inspection, Normal color, Warm/dry Labs/Xrays [place] [address] Ph: [phone] DIAGNOSTIC IMAGING Diagnostic Imaging Report : [id number] Signed PATIENT: TANNER WALDROP ACCT: [id number] UNIT: [id number] : 1955 LOC: ER ROOM / BED: / AGE / SEX: 69 / M ADM STATUS: REG ER SERVICE 52 ORDERING PHYSICIAN: LIBERTAD HARKINS MD PROCEDURE(s): ABPL - CT AB PEL WO CON-NO ORAL OR IV REASON: hematuria, suprapubic pain ORDER NUMBER(s): [id number], ACCESSION NUMBER(s): [id number] Exam: CT CT AB PEL WO CON-NO ORAL OR IV History: hematuria, suprapubic pain Comparison Study: None TECHNIQUE: Multidetector CT of the abdomen and pelvis was performed from lung bases to pubic symphysis. Imaging was performed without IV contrast. Axial, coronal, and sagittal multiplanar reformats were obtained from the axial data set by the technologist. RADIATION DOSE: DLP 636.43 mGy.cm; CTDI vol 9.79 mGy. Findings: Lungs: The lung bases are clear. Heart: No cardiomegaly or pericardial effusion. Liver: Unremarkable. Gallbladder: Unremarkable. Spleen: Unremarkable Pancreas: Unremarkable Adrenals: Unremarkable Kidneys: Right renal cysts. Nonobstructive left nephrolithiasis. GI tract: Unremarkable : Suprapubic catheter. Urinary bladder is otherwise unremarkable. Vasculature: Mild aortoiliac atherosclerosis. Lymphadenopathy: Absent Peritoneum: No ascites Musculoskeletal: Mild multilevel degenerative changes of the thoracolumbar spine. Soft tissues: Left lower quadrant pump generator with two catheters. One tra verses the spinal canal superiorly. The second is disconnected in the posterior soft tissues with the intraspinal portion terminating at L2. Impression: 1. No acute abdominopelvic abnormalities. 2. Suprapubic catheter within an unremarkable urinary bladder. 3. Left lower quadrant pump generator with two catheters. One traverses the spinal canal superiorly. The second is disconnected in the posterior soft tissues with the intraspinal portion terminating at L2. Correlate for proper functionality. ATED BY: MELISSA STERLING DO DICTATED DATE/TIME: 07/01/242120 SIGNED BY: MELISSA STERLING DO SIGNED DATE/TIME: 07/01/242120 CC: Labs Test 07/02/24 06:40 07/02/24 04:00 07/02/24 02:00 07/01/24 23:58 Range/Units White Blood Count 7.6 4.4-10.8 10^3/uL Red Blood Count 4.07 L 4.5-5.90 10^6/uL Hemoglobin 13.5 13.5-17.5 g/dL Hematocrit 39.5 L 41.0-53.0 % Mean Corpuscular Volume 97.1 80.0-100.0 fL Mean Corpuscular Hemoglobin 33.2 H 28.0-32.0 pg Mean Corpuscular Hemoglobin Concent 34.2 32.0-36.0 g/dL Red Cell Distribution Width 12.7 11.8-14.3 % Platelet Count 188 140-450 10^3/uL Mean Platelet Volume 8.5 6.9-10.8 fL Neutrophils (%) (Auto) 67.0 37.0-80.0 % Lymphocytes (%) (Auto) 22.1 10.0-50.0 % Monocytes (%) (Auto) 9.2 0.0-12.0 % Eosinophils (%) (Auto) 0.8 0.0-7.0 % Basophils (%) (Auto) 0.9 0.0-2.0 % Neutrophils # (Auto) 5.1 1.6-8.6 10 ^3/uL Lymphocytes # (Auto) 1.7 0.4-5.4 10 ^3/uL Monocytes # (Auto) 0.7 0-1.3 10 ^3/uL Eosinophils # (Auto) 0.1 0-0.8 10 ^3/uL Basophils # (Auto) 0.1 0-0.2 10 ^3/uL Nucleated Red Blood Cells 0.2 % Sodium Level 141 136-145 mmol/L Potassium Level 3.2 L 3.5-5.1 mmol/L Chloride Level 107 98-107 mmol/L Carbon Dioxide Level 23 20-31 mmol/L Anion Gap 11 5-15 Blood Urea Nitrogen 9 9-23 mg/dL Creatinine 0.79 0.700-1.30 mg/dL Glomerular Filtration Rate Calc 96 >90 mL/min BUN/Creatinine Ratio 11.4 10.0-20.0 Serum Glucose 125 H 74-106 mg/dL Calcium Level 8.6 L 8.7-10.4 mg/dL Total Bilirubin 1.1 H 0.2-1.0 mg/dL Aspartate Amino Transferase (AST) 26 13-40 U/L Alanine Aminotransferase (ALT) 16 7-40 U/L Alkaline Phosphatase 70 46-116 U/L Total Protein 5.8 5.7-8.2 g/dL Albumin 3.7 3.2-4.8 g/dL Influenza Type A Antigen Negative Negative Influenza Type B Antigen Negative Negative Free Thyroxine (T4) Calculated 1.90 H 0.89-1.76 ng/dL Urine Color Dark-red Yellow Urine Clarity Ex.turbid Clear Urine pH 6.5 5.0-9.0 Urine Specific [place] 1.026 1.001-1.035 Urine Protein 2+ H Negative Urine Ketones Negative Negative Urine Blood 3+ H Negative /uL Urine Nitrite Negative Negative Urine Bilirubin Negative Negative Urine Urobilinogen Normal Negative mg/dL Urine Leukocyte Esterase Trace Negative /uL Urine RBC 119572 0 - 3 /hpf Urine Microscopic WBC 1048 H 0-3 /HPF Urine Squamous Epithelial Cells None seen <5 /hpf Urine Bacteria None seen None Seen /hpf Urine Glucose Normal Normal mg/dL Urine Opiates Screen Neg NEGATIVE Urine Fentanyl Screen Pos NEGATIVE Urine Barbiturates Screen Neg NEGATIVE Urine Phencyclidine Screen Neg NEGATIVE Urine Amphetamines Screen Neg NEGATIVE Urine Benzodiazepines Screen Neg NEGATIVE Urine Cocaine Screen Neg NEGATIVE Urine Cannabinoids Screen Neg NEGATIVE Test 07/01/24 21:17 Range/Units Prothrombin Time 12.2 H 9.3-11.8 sec Prothrombin Time INR 1.17 H 0.9-1.15 Activated Partial Thromboplast Time 35.9 H 24.5-34.5 SEC Lactic Acid Level 1.8 0.4-2.0 mmol/L Magnesium Level 1.7 1.6-2.6 mg/dL B-Type Natriuretic Peptide 84.95 0-100 pg/mL Thyroid Stimulating Hormone (TSH) 0.29 L 0.55-4.78 uIU/mL Assessment/Plan Problem List: (1) Hematuria (2) Hypokalemia (3) UTI (urinary tract infection) Plan urine culture obtain cardiac clearance NPO after midnight cysto with DVIU Plan discussed with: Patient, Other KIRSTIE CHAIREZ NP Jul 02, 2024 16:23
[2024-07-02 16:44] VITALS: BP 127/53; PULSE 96; RESP 17; TEMP 97.6; O2SAT 98
--- NOTE | 2024-07-02 16:54 | DVH ---
CHEST RADIOGRAPH Indication: P pain Technique: Single frontal view of the chest was obtained COMPARISON: None FINDINGS: Lines and Tubes: Left chest wall pacemaker Lungs: Clear Pleura: No effusion. No pneumothorax. Cardiomediastinal contours: Unremarkable Bones: Unremarkable IMPRESSION: No acute disease.
--- NOTE | 2024-07-02 17:49 | DVHPNRES ---
Progress Note Date Seen: Jul 02, 2024 Resident Creating Document: KSENIA REECE RESIDENT Medical Necessity Reason Pt with a Central, PICC or Fol: Yes The following are medically ne: Dash Catheter Subjective Review of Systems Patient is 69 years old male with past medical history of hypertension, congestive heart failure, DE x2, PTCAxDES, history of DVT, prostatic carcinoma, status post radiation therapy times 45, thyroid tumor, status post thyroidectomy came with a complaint of hematuria and dysuria. As per patient patient has been having hematuria and dysuria for last dictate 7 days. Patient reported that these symptoms were getting worse and also feeling abdominal pain crampy in nature coronary stent. Also endorsed right leg swelling worsening for last 1 week. Patient reported that they went to [facility] but because of bed inability they were rerouted to [facility] and the [facility]. Patient denied any fever, acute chest pain or shortness of breath, hemiplegia. Significant initial lab workup revealed potassium 2.4, TSH 0.29, F T4 1.90, UDS positive for fentanyl. Urinalysis revealed blood 3+, leukocyte esterase trace, WBC 1048. CT abdomen revealed-. No acute abdominopelvic abnormalities. Suprapubic catheter within an unremarkable urinary bladder. Left lower quadrant pump generator with two catheters. One traverses the spinal canal superiorly. The second is disconnected in the posterior soft tissues with the intraspinal portion terminating at L2. Correlate for proper functionality. Doppler Study of the lower extremity-revealed- No right or left femoropopliteal venous thrombosis. CXR no acute constipation or acute disease. PMH: HTN since 17 years old(metoprolol ), 2 times DE x3 FELICITY at 44 years old, thyroid tumor status post resection at 27 years old, pacemaker 11 years ago, DVT since 2018 on Eliquis, prostate cancer status post radiation 2 years back PSH: Thyroidectomy, pacemaker implantation Family history: Prostate cancer and a DE in brother, AFib in father Social history: Lives with family. Denies smoking, alcohol and other drug abuse Allergies: Acetaminophen diphenhydramine hydrocodone, oxycodone, propoxyphene Home medications: Levothyroxine 150, omeprazole 20, aspirin 81, oxybutynin chloride 5, metoprolol tartrate 25 mg, furosemide 20 mg, tizanidine 2, KCl 10 mEq, Lipitor 40, digoxin 125, Eliquis 5 mg, hydroxyzine 25 mg, tramadol 50 mg Patient was seen today at the bedside. Cardiovascular- deny acute chest pain or shortness of breath or cough or palpitation Respiratory denies cough or short of breath or wheezing Gastrointestinal- denies any rectal bleeding, nausea or vomiting Neurological- denies acute dysarthria, dysphagia, change in vision Psychiatry- denies depression or SI or HI Skin- denies acute rash or purpura Patient was seen today for clinical evaluation. Labs and chart reviewed. Patient reported ongoing hematuria, suprapubic pain. Patient also complained of right lower leg swelling. Patient was seen by urologist urologist. Recommendation reviewed and appreciated. Urology recommended for cystoscopy with DVIU. Objective vital signs Vital Sign Date Time Temp Pulse Resp B/P (MAP) Pulse Ox O2 Delivery O2 Flow Rate FiO2 07/02/24 16:44 97.6 96 17 127/53 (77) 98 97.6 07/02/24 16:31 Room Air* 0 21 Total Intake and Output 07/01/24 07/01/24 07/02/24 15:00 23:00 07:00 Intake Total 150 ml Balance 150 ml medications Current Medications Medications Dose Ordered Sig/Katharina Route Start Time Stop Time Status Last Admin Dose Admin Sodium Chloride 10 ml Q8HR IV 07/02/24 06:00 07/02/24 13:37 10 ML Acetaminophen 650 mg Q6HP PRN PO 07/01/24 22:45 Morphine Sulfate 2 mg Q4HPRN PRN IV 07/01/24 22:45 07/02/24 16:22 2 MG Nitroglycerin 0.4 mg Q5MINP PRN SL 07/01/24 22:45 Morphine Sulfate 2 mg Q30M PRN IV 07/01/24 22:45 Pantoprazole Sodium 40 mg DAILY IV 07/02/24 10:00 07/02/24 10:27 40 MG Ceftriaxone Sodium 50 ml @ 100 mls/hr DAILY@2100 IV 07/02/24 21:00 Levothyroxine Sodium 150 mcg QAM@0600 PO 07/02/24 06:00 07/02/24 06:16 150 MCG Examination General examination- awake, alert, oriented. HEENT- PEERLA, no acute nasal discharge Cardiovascular- S1-S2 audible, rate and rhythm regular, no murmur Respiratory- CTAB, no wheeze or rhonchi Gastrointestinal-suprapubic tenderness around the catheter insertion site+, bowel sound+. Nondistended Musculoskeletal-no acute joint swelling or tenderness or redness# Lower extremity- right lower extremity swollen++ Neurological- cranial nerves intact, no acute dysarthria or dysphagia Psychiatry- denies depression or SI or HI Skin- no acute rash or purpura laboratory and microbiology Laboratory Tests 07/02/24 06:40 Test 07/02/24 06:40 Range/Units Serum Glucose 125 H 74-106 mg/dL Problem List/Assessment/Plan Problem List/Assessment/Plan Acute complicated cystitis Acute hematuria likely due to acute complicated cystitis Right lower leg extremity swelling likely due to DVT Hypertensive heart disease Congestive heart failure systolic versus diastolic History of prostatic carcinoma, status post radiation therapy Thyroid tumor status post thyroidectomy -coronary artery disease DE x2, status post PTCA-FELICITY Pacemaker in place Pain pump generator in place Hypothyroidism due to thyroidectomy -hypokalemia replenished -patient with suprapubic catheter which is clamped by urologist from before -CT abdomen revealed-. No acute abdominopelvic abnormalities. Suprapubic catheter within an unremarkable urinary bladder. Left lower quadrant pump generator with two catheters. One traverses the spinal canal superiorly. The second is disconnected in the posterior soft tissues with the intraspinal portion terminating at L2. Correlate for proper functionality. - Doppler Study of the lower extremity-revealed- No right or left femoropopliteal venous thrombosis. CXR no acute constipation or acute disease. Plan -continue ceftriaxone 1 g IV daily -Hold levothyroxine 150 mcg p.o. q.a.m -continue pantoprazole 40 mg IV daily Continue other medication as prescribed -Patient was seen by urologist urologist. Recommendation reviewed and appreciated. Urology recommended for cystoscopy with DVIU. Maintain intake output chart Monitor vitals Goals of care/advance care planning; FULL CODE; discussed with the patient >15 minutes PUD prophylaxis: Pantoprazole DVT prophylaxis: Lovenox Plan discussed with Dr. Whittaker , nursing staff, patient Total time spent on patient evaluation, chart review, assessment and plan, discussion discussion >31 minutes Plan discussed with: Patient Plan discussed with: Patient, Daughter, Other (RN) Date of Service: Jul 02, 2024 Billing Provider: DIONISIO LAWTON MD Common Visit Codes: [id number] INP/OBS CARE(HIGH) KSENIA REECE Jul 02, 2024 17:49 DIONISIO LAWTON MD Jul 06, 2024 00:11
[2024-07-02] MEDS ORDERED: D5W/SOD CHLO 0.9% 1,000 ML IV SCH (18:00)
[2024-07-02] MEDS: BACLOFEN 10 MG TAB PO ONE (19:15)
[2024-07-02 20:00] VITALS: PULSE 80; PULSE 96; RESP 19; O2SAT 100
[2024-07-02 21:00] VITALS: BP 110/56; PULSE 80; RESP 19; TEMP 98.1; O2SAT 100
[2024-07-02] MEDS: cefTRIAXone 1GM/50ML D5W 50 ML IV SCH (21:49)
[2024-07-03] VITALS (8 sets, daily range): BP systolic 121–125; BP diastolic 52–70; PULSE 64–109; RESP 16–20; TEMP 97.6–98.6; O2SAT 95–100
[2024-07-03 06:57] LABS: Basophils # (auto) 0.1 10 ^3/uL (0-0.2); Basophils % (auto) 1.1 % (0.0-2.0); Eosinophils # (auto) 0.1 10 ^3/uL (0-0.8); Eosinophils % (auto) 3.1 % (0.0-7.0); Hematocrit 37.8 % (41.0-53.0); Hemoglobin 12.6 g/dL (13.5-17.5); Lymphocytes # (auto) 1.2 10 ^3/uL (0.4-5.4); Lymphocytes % (auto) 27.2 % (10.0-50.0); Mean Corpuscular Hemoglobin 32.8 pg (28.0-32.0); Mean Corpuscular Hgb Conc. 33.2 g/dL (32.0-36.0); Mean Corpuscular Volume 98.6 fL (80.0-100.0); Monocytes # (auto) 0.4 10 ^3/uL (0-1.3); Monocytes % (auto) 9.4 % (0.0-12.0); Neutrophils # (auto) 2.6 10 ^3/uL (1.6-8.6); Neutrophils % (auto) 59.2 % (37.0-80.0); Nucleated Red Blood Cells % 0.1 %; Platelet Count (auto) 183 10^3/uL (140-450); Red Blood Cells 3.83 10^6/uL (4.5-5.90); Red Cell Distribution Width 12.9 % (11.8-14.3); White Blood Cell 4.4 10^3/uL (4.4-10.8)
[2024-07-03 07:03] LABS: Anion Gap 8 (5-15); Carbon Dioxide 29 mmol/L (20-31); Chloride 108 mmol/L (98-107); Sodium 145 mmol/L (136-145)
[2024-07-03 07:08] LABS: Blood Urea Nitrogen 9 mg/dL (9-23)
[2024-07-03 07:13] LABS: Glucose 123 mg/dL (74-106)
[2024-07-03] MEDS ORDERED: POTASSIUM CHL 20 Meq TABLET PO ONE (07:15)
[2024-07-03] MEDS ORDERED: METO25TA5 PO (08:10)
[2024-07-03] MEDS ORDERED: NITR50CA52 GT (08:10)
[2024-07-03] MEDS ORDERED: TIZA4TAB9 PO (08:10)
[2024-07-03] MEDS ORDERED: MELA3TAB27 PO (08:10)
[2024-07-03] MEDS ORDERED: DIGO0.12 PO (08:10)
[2024-07-03] MEDS ORDERED: OXYB5TAB14 GT (08:10)
[2024-07-03] MEDS ORDERED: TRAM50TA2 PO (08:10)
[2024-07-03] MEDS ORDERED: FURO20TA3 PO (08:10)
[2024-07-03] MEDS ORDERED: LINA1CAP2 PO (08:10)
[2024-07-03] MEDS ORDERED: ASPI-543 PO (08:10)
[2024-07-03] MEDS ORDERED: POTA-36 PO (08:10)
[2024-07-03] MEDS ORDERED: ACET-1881 PO (08:10)
[2024-07-03] MEDS ORDERED: LEVO150T10 PO (08:10)
[2024-07-03] MEDS ORDERED: NITR0.4S29 SL (08:10)
[2024-07-03] MEDS ORDERED: OME20GT GT (08:10)
[2024-07-03] MEDS ORDERED: APIX5TAB PO (08:10)
[2024-07-03] MEDS ORDERED: ONDA-155 PO (08:10)
[2024-07-03] MEDS ORDERED: ATOR40TA52 PO (08:10)
[2024-07-03] MEDS ORDERED: HYDR-3682 PO (08:10)
[2024-07-03] MEDS ORDERED: FAMO-12 PO (08:10)
--- NOTE | 2024-07-03 09:38 | DVHINCON2 ---
ZEUS LUO [facility] 07/03/24 0938: Date Seen: Jul 03, 2024 Referring Physician SOLIS Kinsey Reason for Consultation Cardiac risk stratification History of Present Illness This is a 69-year-old male patient who presents to emergency room with chief complaint of hematuria and dysuria for two days prior to emergency room arrival. He comes to the emergency room for further evaluation. The patient has a suprapubic catheter which he states has been in place for approximately one year and it is currently not functioning and he has been instructed to urinate from his urethra. Cardiology has now been consulted by urology for cardiac risk stratification for possible cystoscopy with direct vision internal urethrotomy. Initial twelve lead electrocardiogram reveals normal sinus rhythm with notable Q-waves in inferior leads and prolonged QTc interval. The patient denies any cardiac symptoms. Significant past medical history includes coronary artery disease status post multiple PTCAs X 3 FELICITY (on ASA), history myocardial infarction, congestive heart failure, unspecified atrial fibrillation (on Eliquis), hypertension, dyslipidemia, presence of permanent pacemaker ([employer]), right leg DVT (on Eliquis), thyroid cancer status post tumor resection, prostate cancer status post radiation therapy, frequent urinary tract infections, previous tobacco use. Patient reports he sees [employer] Dr. Lu in the outpatient setting and has a scheduled appointment to see him on July 07, 2024. Past Medical History Past medical history reviewed. No other significant than mentioned above. Past Surgical History Thyroid tumor resection Permanent pacemaker insertion X 10 years ago Family History: Patient reports no known family medical history. Family History Family history reviewed. Social History Patient has a five pack-year history, quit smoking approximately 30 years ago Denies any alcohol use Denies any illicit drug use. UDS positive for Fentanyl....unclear if given by EMS Allergies: Coded Allergies: Acetaminophen (Verified Allergy, Unknown, 07/01/24) Diphenhydramine (Verified Allergy, Unknown, 07/01/24) Hydrocodone (Verified Allergy, Unknown, 07/01/24) Oxycodone (Verified Allergy, Unknown, 07/01/24) Propoxyphene (Verified Allergy, Unknown, 07/01/24) Home Meds Reported Medications Nitroglycerin (NTROSTAT SUBLINGUAL) 0.4 Mg Sl, 0.4 MG SL PRN PRN for FOR CHEST PAIN, TAB *MAY REPEAT EVERY 5 MINUTES X 3 TOTAL IF NO RELIEF, INITIATE ANALGESIC THERAPY. NOTIFY PHYSICIAN *Do not crush. 07/03/24 Ondansetron HCl (Ondansetron) 4 Mg Tab, 4 MG PO Q6HPRN PRN for NAUSEA OR VOMITING, TAB 07/03/24 Acetaminophen (Acetaminophen) 325 Mg Tab, 500 MG PO PRN PRN for PAIN SCALE 1 THRU 6 for 30 Days, MG 0 Refills 07/03/24 Tramadol Hcl (Tramadol Hcl) 50 Mg Tab, 50 MG PO Q8HPRN PRN for PAIN SCALE 1 THRU 6, MG 07/03/24 Hydroxyzine Hcl (Hydroxyzine Hcl) 25 Mg Tab, 25 MG PO PRN PRN for ANXIETY for 30 Days, MG 07/03/24 Famotidine (Famotidine) 20 Mg Tab, 40 MG PO PRN for Heartburn for 30 Days, MG 07/03/24 Apixaban Base (ELIQUIS) 5 Mg Tab, 5 MG PO BID, TAB 07/03/24 Digoxin (Digoxin) 125 Mcg Tab, 125 MCG PO QPM, TAB 07/03/24 Atorvastatin Calcium (ATORVASTATIN CALCIUM) 40 Mg Tab, 40 MG PO QPM, TAB 07/03/24 Melatonin (KP MELATONIN) 3 Mg Tab, 5 TAB PO QPM, #30 TAB 2 Refills 07/03/24 Tizanidine Hydrochloride (Zanaflex) 4 Mg Tab, 2 TAB PO BID, #60 TAB 07/03/24 Potassium Chloride (POTASSIUM CHLORIDE CR) 10 Meq Tb, 10 MEQ PO DAILY, TAB 07/03/24 Furosemide (Furosemide) 20 Mg Tab, 20 MG PO BIDD for 30 Days, MG 07/03/24 Metoprolol Tartrate (Metoprolol Tartrate) 25 Mg Tab, 25 MG PO BID, TAB 07/03/24 Oxybutynin Chloride (Oxybutynin Chloride) 5 Mg Tab, 5 MG GT TID for Bladder spasms, TAB 07/03/24 Nitrofurantoin (MACRODANTIN CAPSULE) 50 Mg Cp, 100 MG GT DAILY@BREAKFAST, CAP 07/03/24 Aspirin (Aspir-Low) 81 Mg Tab, 81 MG PO DAILY for 30 Days, MG 07/03/24 Linaclotide Base (Linzess) 72 Mcg Cap, 290 MCG PO DAILY@BREAKFAST, CAP 07/03/24 Omeprazole (Prilosec Susp (For Gt)) 20 Mg Ss, 40 MG GT DAILY@BREAKFAST, ML 07/03/24 Levothyroxine Sodium (Levothyroxine Sodium) 150 Mcg Tab, 150 MCG PO QAM for 30 Days 07/03/24 Home Meds Home medications reviewed. Current Medications Current Medications Medications (Trade) Dose Ordered Sig/Katharina Route PRN Reason Start Time Stop Time Status Last Admin Enoxaparin Sodium (Lovenox) 40 mg DAILY SC 07/02/24 10:00 07/02/24 16:36 DC 07/02/24 10:28 Pantoprazole Sodium (Protonix) 40 mg DAILY IV 07/02/24 10:00 07/02/24 10:27 Ceftriaxone Sodium 50 ml @ 100 mls/hr DAILY@2100 IV 07/02/24 21:00 07/02/24 21:49 Dextrose/Sodium Chloride 1,000 ml @ 75 mls/hr [id number] IV 07/02/24 18:00 07/02/24 19:00 DC Enoxaparin Sodium (Lovenox) 40 mg DAILY SC 07/03/24 10:00 Review of Systems Constitutional: No symptom reported Ears, Nose, & Throat: No symptom reported Eyes: No symptom reported Neurological: No symptoms reported Pulmonary/Respiratory: No symptoms reported Cardiovascular: No symptom reported Gastrointestinal: No symptom reported Genitourinary: Hematuria and dysuria Musculoskeletal: No symptom reported Skin: No symptom reported Psychiatric: No symptom reported Endocrine: No symptom reported Hematologic/Lymphatic: No symptom reported Vital Signs Vital Signs Date Time Temp Pulse Resp B/P (MAP) Pulse Ox O2 Delivery O2 Flow Rate FiO2 07/03/24 08:54 98.6 72 18 122/57 (78) 95 98.6 07/03/24 08:00 Room Air* 0 21 Physical Exam General Appearance: Cooperative. Well-developed. Well-nourished. No acute distress. Pulmonary/Respiratory: Clear, bilateral breaths sounds. Cardiovascular/Chest: Regular rate and rhythm. Peripheral Pulses: 2+ Radial (R). 2+ Radial (L). 2+ Pedal (R). 2+ Pedal (L) Abdominal Exam: Normal bowel sounds. Ankle Exam: Bilateral nonpitting edema Lower extremities: Bilateral nonpitting lower extremity edema, right leg greater than left Neuro/Mental Status: A/OX4, coherent. Thoughts/Psych: Normal thought pattern. Appropriate mood and affect. Good judgment and insight. Appearance: No acute distress. Skin Exam: Normal inspection. Normal color. Warm and dry. Labs/Diagnostic Data Labs Test 07/03/24 06:17 07/02/24 06:40 07/02/24 04:00 07/02/24 02:00 Range/Units White Blood Count 4.4 # 4.4-10.8 10^3/uL Red Blood Count 3.83 L 4.5-5.90 10^6/uL Hemoglobin 12.6 L 13.5-17.5 g/dL Hematocrit 37.8 L 41.0-53.0 % Mean Corpuscular Volume 98.6 80.0-100.0 fL Mean Corpuscular Hemoglobin 32.8 H 28.0-32.0 pg Mean Corpuscular Hemoglobin Concent 33.2 32.0-36.0 g/dL Red Cell Distribution Width 12.9 11.8-14.3 % Platelet Count 183 140-450 10^3/uL Mean Platelet Volume 8.5 6.9-10.8 fL Neutrophils (%) (Auto) 59.2 37.0-80.0 % Lymphocytes (%) (Auto) 27.2 10.0-50.0 % Monocytes (%) (Auto) 9.4 0.0-12.0 % Eosinophils (%) (Auto) 3.1 0.0-7.0 % Basophils (%) (Auto) 1.1 0.0-2.0 % Neutrophils # (Auto) 2.6 1.6-8.6 10 ^3/uL Lymphocytes # (Auto) 1.2 0.4-5.4 10 ^3/uL Monocytes # (Auto) 0.4 0-1.3 10 ^3/uL Eosinophils # (Auto) 0.1 0-0.8 10 ^3/uL Basophils # (Auto) 0.1 0-0.2 10 ^3/uL Nucleated Red Blood Cells 0.1 % Sodium Level 145 136-145 mmol/L Potassium Level 3.0 L 3.5-5.1 mmol/L Chloride Level 108 H 98-107 mmol/L Carbon Dioxide Level 29 20-31 mmol/L Anion Gap 8 5-15 Blood Urea Nitrogen 9 9-23 mg/dL Creatinine 0.69 L 0.700-1.30 mg/dL Glomerular Filtration Rate Calc 100 >90 mL/min BUN/Creatinine Ratio 13.0 10.0-20.0 Serum Glucose 123 H 74-106 mg/dL Calcium Level 9.0 8.7-10.4 mg/dL Magnesium Level 2.0 1.6-2.6 mg/dL Total Bilirubin 1.1 H 0.2-1.0 mg/dL Aspartate Amino Transferase (AST) 26 13-40 U/L Alanine Aminotransferase (ALT) 16 7-40 U/L Alkaline Phosphatase 70 46-116 U/L Total Protein 5.8 5.7-8.2 g/dL Albumin 3.7 3.2-4.8 g/dL Influenza Type A Antigen Negative Negative Influenza Type B Antigen Negative Negative Free Thyroxine (T4) Calculated 1.90 H 0.89-1.76 ng/dL Test 07/01/24 23:58 07/01/24 21:17 Range/Units Urine Color Dark-red Yellow Urine Clarity Ex.turbid Clear Urine pH 6.5 5.0-9.0 Urine Specific [place] 1.026 1.001-1.035 Urine Protein 2+ H Negative Urine Ketones Negative Negative Urine Blood 3+ H Negative /uL Urine Nitrite Negative Negative Urine Bilirubin Negative Negative Urine Urobilinogen Normal Negative mg/dL Urine Leukocyte Esterase Trace Negative /uL Urine RBC 131099 0 - 3 /hpf Urine Microscopic WBC 1048 H 0-3 /HPF Urine Squamous Epithelial Cells None seen <5 /hpf Urine Bacteria None seen None Seen /hpf Urine Glucose Normal Normal mg/dL Urine Opiates Screen Neg NEGATIVE Urine Fentanyl Screen Pos NEGATIVE Urine Barbiturates Screen Neg NEGATIVE Urine Phencyclidine Screen Neg NEGATIVE Urine Amphetamines Screen Neg NEGATIVE Urine Benzodiazepines Screen Neg NEGATIVE Urine Cocaine Screen Neg NEGATIVE Urine Cannabinoids Screen Neg NEGATIVE Prothrombin Time 12.2 H 9.3-11.8 sec Prothrombin Time INR 1.17 H 0.9-1.15 Activated Partial Thromboplast Time 35.9 H 24.5-34.5 SEC Lactic Acid Level 1.8 0.4-2.0 mmol/L B-Type Natriuretic Peptide 84.95 0-100 pg/mL Thyroid Stimulating Hormone (TSH) 0.29 L 0.55-4.78 uIU/mL Microbiology Date/Time Source Procedure Growth Status 07/01/24 21:17 Blood Blood Culture - Preliminary NO GROWTH AFTER 24 HOURS OF INCUBATION. Resulted Assessment Preprocedural cardiovascular examination Coronary artery disease status post multiple PTCAs X 3 FELICITY (on ASA) Chronic HFpEF, NYHA class II History myocardial infarction Unspecified atrial fibrillation (on Eliquis) Hypertension Dyslipidemia Presence of permanent pacemaker ([employer]) Hx of right leg DVT (on Eliquis) History of thyroid and prostate cancer History of tobacco use Plan/Recommendation We will continue with following plan/recommendations (Dr. Yeboah): Transthoracic echocardiogram reveals EF 55%. Revised cardiac risk index (Donald criteria): 2 points (10.1% risk of major cardiac event). The patient has an underlying history of congestive heart failure and coronary artery disease. At this time, the patient does not present with any cardiac symptoms. A chest x- ray reveals no acute disease at this time. BNP level is 84.95pg/mL. Patient is euvolemic. The patient reports a fair functional capacity. Per Cardiology standpoint, the patient is at a moderate risk for moderate risk surgery. There is no additional cardiac workup indicated prior to surgery. Of note, the patient had a prolonged QTc interval on twelve lead electrocardiogram. We would like to recommend to avoid any medications that will further prolong QTc interval as this can potentially cause torsades de pointes. Thank you for allowing us to participate in this patient's care. Please call if you have any questions or concerns. Critical care time spent: 40 minutes This medical document was created using an electronic medical record system with voice recognition software and computerized dictation system. Although this document has been carefully reviewed, there might still be some phonetic and typographical errors. Occasional wrong-word or ``sound-alike substitutions may have occurred due to the inherent limitations of voice recognition software. These areas are purely typographical due to imperfections of the software programs and do not reflect any compromise in the patient's medical care. Please read the chart carefully and recognize, using context, where these substitutions have occurred. Plan discussed with: Patient NYHA 2 Physical activity limitations: Class2(Slight)fatigue,sob (palpitatns, angina w activityv) Date of Service: Jul 03, 2024 Billing Provider: ZEUS LUO Cardiology Common Codes: 83560-KAACFUJ INP/OBS CARE (High) Cardiology Consultation Codes: [id number] CONSULT <45MIN VICKI YEBOAH MD 07/03/24 4177: Family History: Patient reports no known family medical history. Allergies: Coded Allergies: Acetaminophen (Verified Allergy, Unknown, 07/01/24) Diphenhydramine (Verified Allergy, Unknown, 07/01/24) Hydrocodone (Verified Allergy, Unknown, 07/01/24) Oxycodone (Verified Allergy, Unknown, 07/01/24) Propoxyphene (Verified Allergy, Unknown, 07/01/24) Home Meds Reported Medications Nitroglycerin (NTROSTAT SUBLINGUAL) 0.4 Mg Sl, 0.4 MG SL PRN PRN for FOR CHEST PAIN, TAB *MAY REPEAT EVERY 5 MINUTES X 3 TOTAL IF NO RELIEF, INITIATE ANALGESIC THERAPY. NOTIFY PHYSICIAN *Do not crush. 07/03/24 Ondansetron HCl (Ondansetron) 4 Mg Tab, 4 MG PO Q6HPRN PRN for NAUSEA OR VOMITING, TAB 07/03/24 Acetaminophen (Acetaminophen) 325 Mg Tab, 500 MG PO PRN PRN for PAIN SCALE 1 THRU 6 for 30 Days, MG 0 Refills 07/03/24 Tramadol Hcl (Tramadol Hcl) 50 Mg Tab, 50 MG PO Q8HPRN PRN for PAIN SCALE 1 THRU 6, MG 07/03/24 Hydroxyzine Hcl (Hydroxyzine Hcl) 25 Mg Tab, 25 MG PO PRN PRN for ANXIETY for 30 Days, MG 07/03/24 Famotidine (Famotidine) 20 Mg Tab, 40 MG PO PRN for Heartburn for 30 Days, MG 07/03/24 Apixaban Base (ELIQUIS) 5 Mg Tab, 5 MG PO BID, TAB 07/03/24 Digoxin (Digoxin) 125 Mcg Tab, 125 MCG PO QPM, TAB 07/03/24 Atorvastatin Calcium (ATORVASTATIN CALCIUM) 40 Mg Tab, 40 MG PO QPM, TAB 07/03/24 Melatonin (KP MELATONIN) 3 Mg Tab, 5 TAB PO QPM, #30 TAB 2 Refills 07/03/24 Tizanidine Hydrochloride (Zanaflex) 4 Mg Tab, 2 TAB PO BID, #60 TAB 07/03/24 Potassium Chloride (POTASSIUM CHLORIDE CR) 10 Meq Tb, 10 MEQ PO DAILY, TAB 07/03/24 Furosemide (Furosemide) 20 Mg Tab, 20 MG PO BIDD for 30 Days, MG 07/03/24 Metoprolol Tartrate (Metoprolol Tartrate) 25 Mg Tab, 25 MG PO BID, TAB 07/03/24 Oxybutynin Chloride (Oxybutynin Chloride) 5 Mg Tab, 5 MG GT TID for Bladder spasms, TAB 07/03/24 Nitrofurantoin (MACRODANTIN CAPSULE) 50 Mg Cp, 100 MG GT DAILY@BREAKFAST, CAP 07/03/24 Aspirin (Aspir-Low) 81 Mg Tab, 81 MG PO DAILY for 30 Days, MG 07/03/24 Linaclotide Base (Linzess) 72 Mcg Cap, 290 MCG PO DAILY@BREAKFAST, CAP 07/03/24 Omeprazole (Prilosec Susp (For Gt)) 20 Mg Ss, 40 MG GT DAILY@BREAKFAST, ML 07/03/24 Levothyroxine Sodium (Levothyroxine Sodium) 150 Mcg Tab, 150 MCG PO QAM for 30 Days 07/03/24 Plan/Recommendation pt seen with cardiac team ecg reviewed echo showed preserved lvef multiple cv issues pt sees outpt cards proceed to OR at acceptable intermediate risk Plan discussed with: Patient LUO,ZEUS MCDONNELL Jul 03, 2024 09:38 VICKI YEBOAH MD Jul 03, 2024 14:57
[2024-07-03] MEDS: ENOXAPARIN SOD 40 MG/0.4 ML SYRINGE SC SCH (09:41)
[2024-07-03] MEDS ORDERED: LEVOTHYROXINE SODIUM 25 MCG TAB PO ONE (12:15)
--- NOTE | 2024-07-03 12:34 | DVHSR ---
APPROVED REPORT EXAM: LIMITED Two-dimensional and M-mode echocardiogram with Doppler and color Doppler. Blood Pressure: 125/65 mmHg INDICATION evalute cardiac function, preprocedural RISK FACTORS Obesity: Height: 5'8, Weight: 211 DIMENSIONS LVDd5.0 (3.8-5.7cm)LA (2D) (1.9-4.0cm)Aortic Root4.2 (2.0-3.7cm) LVDs3.4 (2.5-4.0cm)LA (MM) (1.9-4.0cm)Aortic Cusp Exc1.1 (1.5-2.0cm) EF (%) 55.0 (55-70%)Rt. Atrium (1.9-4.0cm)Asc. Aorta cm IVSd0.8 (0.7-1.1cm)RV (D) (1.8-2.4cm) PWd0.8 (0.7-1.1cm) Mitral Valve MitralMitral Stenosis E wave0.58m/sMV Mean GR.mmHg A wave0.64m/sMV Peak GR.33mmHg E/A ratio0.92D MVAcm2 DECEL [id number] 1/2 Timems Aortic Valve Aortic ValveAortic Stenosis V11.07m/Venkat Mean GR.5mmHg V21.39m/Venkat Peak GR.8mmHg LVOT Diameter1.9 (1.8-2.4cm)Doppler AVA2.18cm2 Pulmonic Valve V21.25m/s Other Information Quality : Technically LimitedRhythm : Technically limited study due to body habitus.patient position. Conclusion lvef 55% by visual estimate pacing lead in RV RV enlared but not well seen atria not well seen pericardial fat pad no severe valve abnormalities noted
[2024-07-03] MEDS ORDERED: LEVOTHYROXINE SODIUM 112 MCG TAB PO ONE (13:30)
[2024-07-03] MEDS ORDERED: fentaNYL CITRATE 100 MCG/2 ML VL ONE (14:55)
[2024-07-03] MEDS ORDERED: DexAMETHasone SOD PHOS 10MG/1ML VIAL INJ ONE (14:55)
[2024-07-03] MEDS ORDERED: MIDAZOLAM HCL 2MG/2ML 2ml VIAL (1mg/ml) ONE (14:55)
[2024-07-03] MEDS ORDERED: PROPOFOL 10 MG/ML 20 ML IV ONE (16:04)
--- NOTE | 2024-07-03 16:06 | POSTOP ---
Post-Operative Note Post-Operative Note Preop Diagnosis Urethral stricture disease History of prostate cancer, s/p Radation tx BPH SPT in situ Gross hematuria Postop Diagnosis: same Operation performed Cystoscopy with urethral calibration SP tube removal Anesthesia: General Anesthesiologist: Abdullahi Surgeon Kylie Martin Additional Remarks Dash catheter were removed on Saturday07/06/2024 as outpatient Date 07/03/24 Time 16:04 KYLIE MARTIN MD Jul 03, 2024 16:06
[2024-07-03] MEDS: MORPHINE SULFATE 4 MG/ML SYR/VIAL IV PRN (16:19)
[2024-07-03] MEDS: MORPHINE SULFATE INJ 2 MG/ml SYRG ONE (16:19)
[2024-07-03] MEDS: HYDROmorphone HCL 2 MG/ML VL/or syr ONE (16:29)
[2024-07-03] MEDS: ONDANSETRON HCL 4 MG/2 ML VIAL ONE (16:29)
[2024-07-03] MEDS: HYDROmorphone HCL 2 MG/ML VL/or syr IV PRN (16:30)
[2024-07-03] MEDS: ONDANSETRON HCL 4 MG/2 ML VIAL IV ONE (16:30)
[2024-07-03] MEDS ORDERED: ePHEDrine SULFATE 50 MG/ML AMP IV PRN (16:30)
[2024-07-03] MEDS ORDERED: fentaNYL CITRATE 100 MCG/2 ML VL IV PRN (16:30)
[2024-07-03] MEDS ORDERED: MIDAZOLAM HCL 2MG/2ML 2ml VIAL (1mg/ml) IV PRN (16:30)
[2024-07-03] MEDS ORDERED: hydrALAZINE HCL 20 MG/ML VL IV PRN (16:30)
--- NOTE | 2024-07-03 16:30 | DVHPNRES ---
Progress Note Date Seen: Jul 03, 2024 Resident Creating Document: KSENIA REECE RESIDENT Medical Necessity Reason Pt with a Central, PICC or Fol: Yes The following are medically ne: Dash Catheter Subjective Review of Systems Patient is 69 years old male with past medical history of hypertension, congestive heart failure, SD x2, PTCAxDES, history of DVT, prostatic carcinoma, status post radiation therapy times 45, thyroid tumor, status post thyroidectomy came with a complaint of hematuria and dysuria. As per patient patient has been having hematuria and dysuria for last dictate 7 days. Patient reported that these symptoms were getting worse and also feeling abdominal pain crampy in nature coronary stent. Also endorsed right leg swelling worsening for last 1 week. Patient reported that they went to [facility] but because of bed inability they were rerouted to [facility]. Patient denied any fever, acute chest pain or shortness of breath, hemiplegia. Significant initial lab workup revealed potassium 2.4, TSH 0.29, F T4 1.90, UDS positive for fentanyl. Urinalysis revealed blood 3+, leukocyte esterase trace, WBC 1048. CT abdomen revealed-. No acute abdominopelvic abnormalities. Suprapubic catheter within an unremarkable urinary bladder. Left lower quadrant pump generator with two catheters. One traverses the spinal canal superiorly. The second is disconnected in the posterior soft tissues with the intraspinal portion terminating at L2. Correlate for proper functionality. Doppler Study of the lower extremity-revealed- No right or left femoropopliteal venous thrombosis. CXR no acute constipation or acute disease. Doppler study negative for DVT. Echo 2D revealed-LVEF- 55% by visual estimate, pacing lead in RV, RV enlared but not well seen . atria not well seen. pericardial fat pad. no severe valve abnormalities noted PMH: HTN since 17 years old(metoprolol ), 2 times SD x3 FELICITY at 44 years old, thyroid tumor status post resection at 27 years old, pacemaker 11 years ago, DVT since 2018 on Eliquis, prostate cancer status post radiation 2 years back PSH: Thyroidectomy, pacemaker implantation Family history: Prostate cancer and a SD in brother, AFib in father Social history: Lives with family. Denies smoking, alcohol and other drug abuse Allergies: Acetaminophen diphenhydramine hydrocodone, oxycodone, propoxyphene Home medications: Levothyroxine 150, omeprazole 20, aspirin 81, oxybutynin chloride 5, metoprolol tartrate 25 mg, furosemide 20 mg, tizanidine 2, KCl 10 mEq, Lipitor 40, digoxin 125, Eliquis 5 mg, hydroxyzine 25 mg, tramadol 50 mg Patient was seen today at the bedside. Cardiovascular- deny acute chest pain or shortness of breath or cough or palpitation Respiratory denies cough or short of breath or wheezing Gastrointestinal- denies any rectal bleeding, nausea or vomiting Neurological- denies acute dysarthria, dysphagia, change in vision Psychiatry- denies depression or SI or HI Skin- denies acute rash or purpura Patient was seen today for clinical evaluation. Labs and chart reviewed. Reports feeling better today but ongoing suprapubic tenderness. .Doppler study negative for DVT. Echo 2D revealed-LVEF- 55% by visual estimate, pacing lead in RV, RV enlared but not well seen . atria not well seen. pericardial fat pad. no severe valve abnormalities noted. Patient had to be today with urethral calibration. No postoperative completion noted so far. Objective vital signs Vital Sign Date Time Temp Pulse Resp B/P (MAP) Pulse Ox O2 Delivery O2 Flow Rate FiO2 07/03/24 13:17 98.0 67 16 122/52 (75) 96 98.0 07/03/24 08:00 Room Air* 0 21 Total Intake and Output 07/02/24 07/02/24 07/03/24 15:00 23:00 07:00 Intake Total 587.5 ml 350 ml 100 ml Output Total 150 ml Balance 587.5 ml 350 ml -50 ml medications Current Medications Medications Dose Ordered Sig/Katharina Route Start Time Stop Time Status Last Admin Dose Admin Sodium Chloride 10 ml Q8HR IV 07/02/24 06:00 07/03/24 14:00 10 ML Acetaminophen 650 mg Q6HP PRN PO 07/01/24 22:45 Morphine Sulfate 2 mg Q4HPRN PRN IV 07/01/24 22:45 07/03/24 09:53 2 MG Nitroglycerin 0.4 mg Q5MINP PRN SL 07/01/24 22:45 Morphine Sulfate 2 mg Q30M PRN IV 07/01/24 22:45 Pantoprazole Sodium 40 mg DAILY IV 07/02/24 10:00 07/03/24 09:37 40 MG Ceftriaxone Sodium 50 ml @ 100 mls/hr DAILY@2100 IV 07/02/24 21:00 07/02/24 21:49 100 MLS/HR Enoxaparin Sodium 40 mg DAILY SC 07/03/24 10:00 Levothyroxine Sodium 25 mcg QAM@0600 PO 07/04/24 06:00 Potassium Bicarbonate 50 meq DAILY PO 07/04/24 17:00 Levothyroxine Sodium 112 mcg QAM@0600 PO 07/04/24 06:00 Hydralazine HCl 5 mg Q10M PRN IV 07/03/24 16:30 07/03/24 17:21 UNV Morphine Sulfate 2 mg Q2HPRN PRN IV 07/03/24 16:30 07/03/24 16:31 UNV Midazolam HCl 1 mg Q10M PRN IV 07/03/24 16:30 07/03/24 17:11 UNV Ephedrine Sulfate 10 mg Q10M PRN IV 07/03/24 16:30 07/03/24 17:11 UNV Fentanyl Citrate 25 mcg Q1HP PRN IV 07/03/24 16:30 07/03/24 16:31 UNV Hydromorphone HCl 0.5 mg Q10M PRN IV 07/03/24 16:30 07/03/24 17:11 UNV Examination General examination- awake, alert, oriented. HEENT- PEERLA, no acute nasal discharge Cardiovascular- S1-S2 audible, rate and rhythm regular, no murmur Respiratory- CTAB, no wheeze or rhonchi Gastrointestinal-suprapubic tenderness around the catheter insertion site+, bowel sound+. Nondistended Musculoskeletal-no acute joint swelling or tenderness or redness# Lower extremity- right lower extremity swollen+ Neurological- cranial nerves intact, no acute dysarthria or dysphagia Psychiatry- denies depression or SI or HI Skin- no acute rash or purpura laboratory and microbiology Laboratory Tests 07/03/24 06:17 Test 07/03/24 06:17 Range/Units Serum Glucose 123 H 74-106 mg/dL Microbiology Date/Time Source Procedure Growth Status 07/01/24 23:58 Urine - Catheterized Urine Culture - Preliminary Resulted 07/01/24 21:17 Blood Blood Culture - Preliminary NO GROWTH AFTER 24 HOURS OF INCUBATION. Resulted Problem List/Assessment/Plan Problem List/Assessment/Plan Acute complicated cystitis Acute hematuria likely due to acute complicated cystitis Urethral stricture disease BPH Suprapubic catheter in situ Right lower leg extremity swelling likely due to DVT Hypertensive heart disease Congestive heart failure systolic versus diastolic History of prostatic carcinoma, status post radiation therapy Thyroid tumor status post thyroidectomy HFpEF, no acute exacerbation Enlarged RV Pericardial fat pad -coronary artery disease SD x2, status post PTCA-FELICITY Pacemaker in situ Pain pump generator in place Hypothyroidism due to thyroidectomy -hypokalemia replenished -patient with suprapubic catheter which is clamped by urologist from before -CT abdomen revealed-. No acute abdominopelvic abnormalities. Suprapubic catheter within an unremarkable urinary bladder. Left lower quadrant pump generator with two catheters. One traverses the spinal canal superiorly. The second is disconnected in the posterior soft tissues with the intraspinal portion terminating at L2. Correlate for proper functionality. - Doppler Study of the lower extremity-revealed- No right or left femoropopliteal venous thrombosis. CXR no acute constipation or acute disease. -Doppler study negative for DVT. Echo 2D revealed-LVEF- 55% by visual estimate, pacing lead in RV, RV enlared but not well seen . atria not well seen. pericardial fat pad. no severe valve abnormalities noted. Patient had to be today with urethral calibration. No postoperative completion noted so far. Plan -continue ceftriaxone 1 g IV daily -continue levothyroxine 137 mcg p.o. q.a.m -continue pantoprazole 40 mg IV daily Continue other medication as prescribed Maintain intake output chart Monitor vitals Goals of care/advance care planning; FULL CODE; discussed with the patient >15 minutes PUD prophylaxis: Pantoprazole DVT prophylaxis: Lovenox Plan discussed with Dr. Whittaker , nursing staff, patient Total time spent on patient evaluation, chart review, assessment and plan, discussion discussion >31 minutes Plan discussed with: Patient Plan discussed with: Patient, Daughter (RN), Other My Orders My Orders Orders - KSENIA REECE RESIDENT Procedure Category Date Status Time Record Request ED NURSING 07/02/24 Transmitted Communication Order ORDERS 07/02/24 Transmitted 17:31 Enoxaparin Sodium PHA 07/03/24 In Process (Lovenox) 10:00 Levothyroxine Tablet PHA 07/04/24 In Process (Synthroid Tablet) 06:00 Potassium Effervesent PHA 07/04/24 In Process Tab (Klor-Con/Ef) 17:00 Levothyroxine Tablet PHA 07/04/24 In Process (Synthroid Tablet) 06:00 Date of Service: Jul 03, 2024 Billing Provider: DIONISIO LAWTON MD Common Visit Codes: [id number] INP/OBS CARE(HIGH) KSENIA REECE RESIDENT Jul 03, 2024 16:30 DIONISIO LAWTON MD Jul 06, 2024 00:16
[2024-07-03] MEDS: LEVOTHYROXINE SODIUM 25 MCG TAB PO ONE (17:13)
[2024-07-03] MEDS: POTASSIUM EFFERVESENT TAB 25 MEQ PO ONE (17:13)
[2024-07-03] MEDS: LEVOTHYROXINE SODIUM 112 MCG TAB PO ONE (17:14)
[2024-07-03] MEDS: ACETAMINOPHEN 325 MG TAB PO PRN (20:13)
[2024-07-03] MEDS: POTASSIUM EFFERVESENT TAB 25 MEQ GT ONE (20:19)
[2024-07-03] MEDS: BACLOFEN 10 MG TAB PO ONE (21:17)
[2024-07-04] VITALS (7 sets, daily range): BP systolic 119–143; BP diastolic 62–80; PULSE 80–94; RESP 15–20; TEMP 97.8–98.7; O2SAT 95–99
[2024-07-04] MEDS: LEVOTHYROXINE SODIUM 112 MCG TAB PO SCH (05:49)
[2024-07-04] MEDS: LEVOTHYROXINE SODIUM 25 MCG TAB PO SCH (05:50)
[2024-07-04 07:58] LABS: Anion Gap 8 (5-15); Calcium 9.5 mg/dL (8.7-10.4); Carbon Dioxide 27 mmol/L (20-31); Sodium 144 mmol/L (136-145)
[2024-07-04 07:59] LABS: Basophils # (auto) 0 10 ^3/uL (0-0.2); Basophils % (auto) 0.4 % (0.0-2.0); Eosinophils # (auto) 0 10 ^3/uL (0-0.8); Eosinophils % (auto) 0.1 % (0.0-7.0); Hematocrit 39.1 % (41.0-53.0); Hemoglobin 13.3 g/dL (13.5-17.5); Lymphocytes # (auto) 0.8 10 ^3/uL (0.4-5.4); Mean Corpuscular Hemoglobin 33.3 pg (28.0-32.0); Mean Corpuscular Hgb Conc. 33.9 g/dL (32.0-36.0); Mean Corpuscular Volume 98.3 fL (80.0-100.0); Monocytes # (auto) 0.2 10 ^3/uL (0-1.3); Monocytes % (auto) 3.4 % (0.0-12.0); Neutrophils # (auto) 5.9 10 ^3/uL (1.6-8.6); Neutrophils % (auto) 84.1 % (37.0-80.0); Nucleated Red Blood Cells % 0.1 %; Platelet Count (auto) 204 10^3/uL (140-450); Red Blood Cells 3.98 10^6/uL (4.5-5.90); Red Cell Distribution Width 13.2 % (11.8-14.3)
[2024-07-04 08:04] LABS: BUN/Creatinine Ratio 11.8 (10.0-20.0); Blood Urea Nitrogen 9 mg/dL (9-23)
[2024-07-04 08:05] LABS: Chloride 109 mmol/L (98-107); Glucose 181 mg/dL (74-106); Magnesium 2.1 mg/dL (1.6-2.6)
--- NOTE | 2024-07-04 11:05 | ECG ---
[facility] Test Date: 2024-07-03 Test Time: 12:07:34 Pat Name: TANNER WALDROP Department: Respiratoy Room: 0294 B Gender: M Welder Apprentice: MARTY ROSS LVN : 1955 Requested By: ZEUS LUO Order Number: [id number] Reading MD: Jonathan Perera Measurements Intervals [place] Rate: 69 P: -2 MN: 164 QRS: 4 QRSD: 125 T: 45 QT: 472 QTc: 506 Interpretive Statements Incomplete analysis due to missing data in precordial lead(s) Sinus rhythm Nonspecific intraventricular conduction delay Borderline repolarization abnormality Missing lead(s): V3 Electronically Signed On 07-06-2024 8:12:46 PST by Jonathan Perera Please click the below link to view image of tracing.
--- NOTE | 2024-07-04 15:18 | DVHDSRES ---
Discharge Summary Date of Admission Resident Creating Document: KSENIA REECE Jul 01, 2024 at 22:41 Date of Discharge: Jul 04, 2024 Admitting Diagnosis Suspected acute complicated UTI with the hematuria Labs/Diagnostic Data: Laboratory Results Test 07/04/24 06:52 07/02/24 06:40 07/02/24 04:00 07/02/24 02:00 White Blood Count 7.0 10^3/uL (4.4-10.8) Red Blood Count 3.98 10^6/uL (4.5-5.90) Hemoglobin 13.3 g/dL (13.5-17.5) Hematocrit 39.1 % (41.0-53.0) Mean Corpuscular Volume 98.3 fL (80.0-100.0) Mean Corpuscular Hemoglobin 33.3 pg (28.0-32.0) Mean Corpuscular Hemoglobin Concent 33.9 g/dL (32.0-36.0) Red Cell Distribution Width 13.2 % (11.8-14.3) Platelet Count 204 10^3/uL (140-450) Mean Platelet Volume 8.4 fL (6.9-10.8) Neutrophils (%) (Auto) 84.1 % (37.0-80.0) Lymphocytes (%) (Auto) 12.0 % (10.0-50.0) Monocytes (%) (Auto) 3.4 % (0.0-12.0) Eosinophils (%) (Auto) 0.1 % (0.0-7.0) Basophils (%) (Auto) 0.4 % (0.0-2.0) Neutrophils # (Auto) 5.9 10 ^3/uL (1.6-8.6) Lymphocytes # (Auto) 0.8 10 ^3/uL (0.4-5.4) Monocytes # (Auto) 0.2 10 ^3/uL (0-1.3) Eosinophils # (Auto) 0 10 ^3/uL (0-0.8) Basophils # (Auto) 0 10 ^3/uL (0-0.2) Nucleated Red Blood Cells 0.1 % Sodium Level 144 mmol/L (136-145) Potassium Level 4.0 mmol/L (3.5-5.1) Chloride Level 109 mmol/L (98-107) Carbon Dioxide Level 27 mmol/L (20-31) Anion Gap 8 (5-15) Blood Urea Nitrogen 9 mg/dL (9-23) Creatinine 0.76 mg/dL (0.700-1.30) Glomerular Filtration Rate Calc 97 mL/min (>90) BUN/Creatinine Ratio 11.8 (10.0-20.0) Serum Glucose 181 mg/dL (74-106) Calcium Level 9.5 mg/dL (8.7-10.4) Magnesium Level 2.1 mg/dL (1.6-2.6) Total Bilirubin 1.1 mg/dL (0.2-1.0) Aspartate Amino Transferase (AST) 26 U/L (13-40) Alanine Aminotransferase (ALT) 16 U/L (7-40) Alkaline Phosphatase 70 U/L (46-116) Total Protein 5.8 g/dL (5.7-8.2) Albumin 3.7 g/dL (3.2-4.8) Influenza Type A Antigen Negative (Negative) Influenza Type B Antigen Negative (Negative) Free Thyroxine (T4) Calculated 1.90 ng/dL (0.89-1.76) Test 07/01/24 23:58 07/01/24 21:17 Urine Color Dark-red (Yellow) Urine Clarity Ex.turbid (Clear) Urine pH 6.5 (5.0-9.0) Urine Specific [place] 1.026 (1.001-1.035) Urine Protein 2+ (Negative) Urine Ketones Negative (Negative) Urine Blood 3+ /uL (Negative) Urine Nitrite Negative (Negative) Urine Bilirubin Negative (Negative) Urine Urobilinogen Normal mg/dL (Negative) Urine Leukocyte Esterase Trace /uL (Negative) Urine RBC 663470 /hpf (0 - 3) Urine Microscopic WBC 1048 /HPF (0-3) Urine Squamous Epithelial Cells None seen /hpf (<5) Urine Bacteria None seen /hpf (None Seen) Urine Glucose Normal mg/dL (Normal) Urine Opiates Screen Neg (NEGATIVE) Urine Fentanyl Screen Pos (NEGATIVE) Urine Barbiturates Screen Neg (NEGATIVE) Urine Phencyclidine Screen Neg (NEGATIVE) Urine Amphetamines Screen Neg (NEGATIVE) Urine Benzodiazepines Screen Neg (NEGATIVE) Urine Cocaine Screen Neg (NEGATIVE) Urine Cannabinoids Screen Neg (NEGATIVE) Prothrombin Time 12.2 sec (9.3-11.8) Prothrombin Time INR 1.17 (0.9-1.15) Activated Partial Thromboplast Time 35.9 SEC (24.5-34.5) Lactic Acid Level 1.8 mmol/L (0.4-2.0) B-Type Natriuretic Peptide 84.95 pg/mL (0-100) Thyroid Stimulating Hormone (TSH) 0.29 uIU/mL (0.55-4.78) Other Laboratory Tests 07/04/24 06:52 Brief Hx & Hospital Course: Patient is 69 years old male with past medical history of hypertension, congestive heart failure, AL x2, PTCAxDES, history of DVT, prostatic carcinoma, status post radiation therapy times 45, thyroid tumor, status post thyroidectomy came with a complaint of hematuria and dysuria. As per patient patient has been having hematuria and dysuria for last dictate 7 days. Patient reported that these symptoms were getting worse and also feeling abdominal pain crampy in nature coronary stent. Also endorsed right leg swelling worsening for last 1 week. Patient reported that they went to [facility] but because of bed inability they were rerouted to [facility]. At [facility] on 06/28/24 Doppler study revealed nonocclusive right popliteal vein thrombosis. Patient denied any fever, acute chest pain or shortness of breath, hemiplegia. Significant initial lab workup revealed potassium 2.4, TSH 0.29, F T4 1.90, UDS positive for fentanyl. Urinalysis revealed blood 3+, leukocyte esterase trace, WBC 1048. CT abdomen revealed-. No acute abdominopelvic abnormalities. Suprapubic catheter within an unremarkable urinary bladder. Left lower quadrant pump generator with two catheters. One traverses the spinal canal superiorly. The second is disconnected in the posterior soft tissues with the intraspinal portion terminating at L2. Correlate for proper functionality. Doppler Study of the lower extremity-revealed- No right or left femoropopliteal venous thrombosis. CXR no acute constipation or acute disease. Doppler study negative for DVT. Echo 2D revealed-LVEF- 55% by visual estimate, pacing lead in RV, RV enlared but not well seen . atria not well seen. pericardial fat pad. no severe valve abnormalities noted Hospital course-patient came with leg swelling and hematuria and dysuria. Patient was admitted due to acute complicated cystitis with the hematuria with urethral stricture disease and right lower leg DVT. Patient reported that they went to [facility] but because of bed inability they were rerouted to [facility]. At [facility] on 06/28/24 Doppler study revealed nonocclusive right popliteal vein thrombosis. Patient denied any fever, acute chest pain or shortness of breath, hemiplegia. Significant initial lab workup revealed potassium 2.4, TSH 0.29, F T4 1.90, UDS positive for fentanyl. Urinalysis revealed blood 3+, leukocyte esterase trace, WBC 1048. CT abdomen revealed-. No acute abdominopelvic abnormalities. Suprapubic catheter within an unremarkable urinary bladder. Left lower quadrant pump generator with two catheters. One traverses the spinal canal superiorly. The second is disconnected in the posterior soft tissues with the intraspinal portion terminating at L2. Correlate for proper functionality. Doppler Study of the lower extremity-revealed- No right or left femoropopliteal venous thrombosis. CXR no acute constipation or acute disease. Doppler study negative for DVT. Echo 2D revealed-LVEF- 55% by visual estimate, pacing lead in RV, RV enlared but not well seen . atria not well seen. pericardial fat pad. no severe valve abnormalities noted. Patient was treated conservatively with IV antibiotic for UTI. Patient also had urological procedure for urethral dilatation due to stricture urethral disease. Postoperative no confusion noted. Urology cleared patient for discharge and also urologist Dr. Bennett cleared for restarting Eliquis for DVT. Patient was restarted on Eliquis after clearance from urologist. Patient was hemodynamically stable. Patient is being discharged home with Augmentin 500 mg 3 times a day for 7 days and Eliquis 500 mg b.i.d.. Patient was advised to follow up with the primary care physician in 1 week and also to follow up with the urologist on 07/06/2024 for removal of Dash's catheter and for further evaluation and care. Patient's meds were sent to the pharmacy electronically. Patient's vital was stable on discharge Diagnosis Acute complicated cystitis Acute hematuria likely due to acute complicated cystitis Urethral stricture disease BPH Suprapubic catheter in situ Right lower extremity DVT-partially occlusive as per [facility] Doppler study report Right lower leg extremity swelling likely due to DVT Hypertensive heart disease Congestive heart failure systolic versus diastolic History of prostatic carcinoma, status post radiation therapy Thyroid tumor status post thyroidectomy HFpEF, no acute exacerbation Enlarged RV Pericardial fat pad -coronary artery disease AL x2, status post PTCA-FELICITY Pacemaker in situ Pain pump generator in place Hypothyroidism due to thyroidectomy -hypokalemia replenished Discharge plan Augmentin 500 mg 2 times a day for 7 days Eliquis 5 mg 2 times a day Please resume other home medications Please follow up with your primary care physician in 1 week Please follow up with your urologist on 07/06/2024 for removal of Dash's catheter and for further evaluation and care With a complaint with medications Stop Eliquis if any hematuria or any sign of bleeding and call your urologist or primary care physician. Operations or Procedures [place] [id number] Ph: [phone] DIAGNOSTIC IMAGING Diagnostic Imaging Report : [id number] Signed PATIENT: TANNER WALDROP ACCT: [id number] UNIT: [id number] : 1955 LOC: [facility] ROOM / BED: [address] [place] [address] AGE / SEX: 69 / M ADM STATUS: ADM IN SERVICE 18 ORDERING PHYSICIAN: ZEUS LUO PROCEDURE(s): CXR1 - CHEST XRAY 1 VIEW REASON: Preprocedural ORDER NUMBER(s): [id number], ACCESSION NUMBER(s): [id number] CHEST RADIOGRAPH Indication: P pain Technique: Single frontal view of the chest was obtained COMPARISON: None FINDINGS: Lines and Tubes: Left chest wall pacemaker Lungs: Clear Pleura: No effusion. No pneumothorax. Cardiomediastinal contours: Unremarkable Bones: Unremarkable IMPRESSION: No acute disease. ATED BY: KEITH DUGAN MD DICTATED DATE/TIME: 07/02/241648 SIGNED BY: KEITH DUGAN MD SIGNED DATE/TIME: 07/02/241648 CC: [place] [id number] Ph: [phone] DIAGNOSTIC IMAGING Diagnostic Imaging Report : [id number] Signed PATIENT: TANNER WALDROP ACCT: [id number] UNIT: [id number] : 1955 LOC: OVERFLOW ROOM / BED: [facility] / A AGE / SEX: 69 / M ADM STATUS: ADM IN SERVICE 50 ORDERING PHYSICIAN: SARA HYMAN PROCEDURE(s): BLDVT - BiLat Lower DVT REASON: h/o DVT ORDER NUMBER(s): [id number], ACCESSION NUMBER(s): [id number] Bilateral lower extremity venous duplex Clinical History: h/o DVT Comparison: None available Technique: Duplex Doppler evaluation of the deep venous systems of both lower extremities from the common femoral veins to the popliteal veins including color Doppler and spectral/pulsed waveform analysis was performed. Findings: RIGHT SIDE: The common femoral vein demonstrates appropriate compressibility and waveform variability. There is compressibility/patency of the great saphenous vein at the proximal thigh. The femoral vein demonstrates appropriate compressibility and waveform variability. The deep femoral vein demonstrates appropriate compressibility and waveform variability. The popliteal vein demonstrates appropriate compressibility and waveform variability. There is normal compressibility at the tibioperoneal trunk. LEFT SIDE: The common femoral vein demonstrates appropriate compressibility and waveform variability. There is compressibility/patency of the great saphenous vein at the proximal thigh. The femoral vein demonstrates appropriate compressibility and waveform variability. The deep femoral vein demonstrates appropriate compressibility and waveform variability. The popliteal vein demonstrates appropriate compressibility and waveform variability. There is normal compressibility at the tibioperoneal trunk. Impression: 1. No right or left femoropopliteal venous thrombosis. ATED BY: ARELI MANUEL MD DICTATED DATE/TIME: 07/02/24 0000 SIGNED BY: ARELI MANUEL MD SIGNED DATE/TIME: 07/02/24 0000 CC: [address] [id number] Ph: [phone] DIAGNOSTIC IMAGING Diagnostic Imaging Report : [id number] Signed PATIENT: TANNER WALDROP ACCT: [id number] UNIT: [id number] : 1955 LOC: ER ROOM / BED: / AGE / SEX: 69 / M ADM STATUS: REG ER SERVICE 52 ORDERING PHYSICIAN: LIBERTAD HARKINS MD PROCEDURE(s): ABPL - CT AB PEL WO CON-NO ORAL OR IV REASON: hematuria, suprapubic pain ORDER NUMBER(s): [id number], ACCESSION NUMBER(s): [id number] Exam: CT CT AB PEL WO CON-NO ORAL OR IV History: hematuria, suprapubic pain Comparison Study: None TECHNIQUE: Multidetector CT of the abdomen and pelvis was performed from lung bases to pubic symphysis. Imaging was performed without IV contrast. Axial, coronal, and sagittal multiplanar reformats were obtained from the axial data set by the technologist. RADIATION DOSE: DLP 636.43 mGy.cm; CTDI vol 9.79 mGy. Findings: Lungs: The lung bases are clear. Heart: No cardiomegaly or pericardial effusion. Liver: Unremarkable. Gallbladder: Unremarkable. Spleen: Unremarkable Pancreas: Unremarkable Adrenals: Unremarkable Kidneys: Right renal cysts. Nonobstructive left nephrolithiasis. GI tract: Unremarkable : Suprapubic catheter. Urinary bladder is otherwise unremarkable. Vasculature: Mild aortoiliac atherosclerosis. Lymphadenopathy: Absent Peritoneum: No ascites Musculoskeletal: Mild multilevel degenerative changes of the thoracolumbar spine. Soft tissues: Left lower quadrant pump generator with two catheters. One traverses the spinal canal superiorly. The second is disconnected in the posterior soft tissues with the intraspinal portion terminating at L2. Impression: 1. No acute abdominopelvic abnormalities. 2. Suprapubic catheter within an unremarkable urinary bladder. 3. Left lower quadrant pump generator with two catheters. One traverses the spinal canal superiorly. The second is disconnected in the posterior soft tissues with the intraspinal portion terminating at L2. Correlate for proper functionality. ATED BY: MELISSA STERLING DO DICTATED DATE/TIME: 07/01/242120 SIGNED BY: MELISSA STERLING DO SIGNED DATE/TIME: 07/01/242120 CC: Condition at Discharge: Stable Final Diagnosis/Problems List Acute complicated cystitis Acute hematuria likely due to acute complicated cystitis Urethral stricture disease BPH Suprapubic catheter in situ Right lower leg extremity swelling likely due to DVT Right lower extremity DVT-partially occlusive as per [facility] Doppler study report Hypertensive heart disease Congestive heart failure systolic versus diastolic History of prostatic carcinoma, status post radiation therapy Thyroid tumor status post thyroidectomy HFpEF, no acute exacerbation Enlarged RV Pericardial fat pad -coronary artery disease AL x2, status post PTCA-FELICITY Pacemaker in situ Pain pump generator in place Hypothyroidism due to thyroidectomy -hypokalemia replenished Discharge Disposition: Home Discharge Instruct/Medications Diet: Consistent carbohydrate, Cardiac 2g Na,low cholest Activity: No Restrictions, As Tolerated Follow Up/Referral: Please follow up with your primary care physician in 1 week Please follow up with the urologist on 07/06/24 for further evaluation and care and for removal of Dash's catheter Please follow up with your card clothier as per schedule Avoid dehydration Please be compliant with medications IF THERE ARE ANY SIGN OR SYMPTOM OF BLEEDING OR HEMATURIA PLEASE HISTORY OF ELIQUIS AND CALL YOUR PRIMARY CARE PHYSICIAN OR UROLOGIST OR GO TO THE NEAREST ER. Medications: Augmentin 500 mg 2 times a day for 7 days Eliquis 5 mg 2 times a day Please resume other home medications Discharge Statement: "Patient was advised to return to the ER or call 911 if any headaches, dizziness, shortness of breath, chest pain, abdominal pain, bleeding, fevers, or worsening of medical condition. Patient was counseled about treatment plan, medications, possible side effects, patientverbalized understanding. All questions were answered to the best of my ability. This discharge took greater then 30 minutes in planning, reviewing documentation, counseling the patient, and discussing with other team members." ASSESSMENT ASSESSMENT Assessment Acute complicated UTI Hematuria Date of Service: Jul 04, 2024 Billing Provider: DIONISIO LAWTON MD Common Visit Codes: 77800-MDT/OBS DISCH DAY >30min KSENIA REECE RESIDENT Jul 04, 2024 15:17 DIONISIO LAWTON MD Jul 06, 2024 00:38
[2024-07-04] MEDS ORDERED: AMOX500T86 PO (15:19)
[2024-07-04] MEDS ORDERED: APIX5TAB PO (15:19)
[2024-07-04] MEDS ORDERED: POTASSIUM EFFERVESENT TAB 25 MEQ PO SCH (17:00)
[2024-07-04] MEDS: POTASSIUM EFFERVESENT TAB 25 MEQ PO SCH (17:48)
[2024-07-04] MEDS: FUROSEMIDE 20 MG TAB PO SCH (17:49)
[2024-07-04] MEDS: DIGOXIN 0.125 MG TAB PO SCH (17:49)
[2024-07-04] MEDS ORDERED: METOPROLOL TARTRATE 25 MG TAB PO SCH (22:00)
[2024-07-04] MEDS ORDERED: ATORVASTATIN 20 MG TAB PO SCH (22:00)
[2024-07-04] MEDS ORDERED: APIXABAN 5 MG TAB PO SCH (22:00)
--- NOTE | 2024-07-05 15:49 | ECG ---
[facility] Test Date: 2024-07-03 Test Time: 12:10:04 Pat Name: TANNER WALDROP Department: Respiratoy Room: 0294 B Gender: M Rail Walker: MARTY ROSS LVN : 1955 Requested By: KSENIA REECE Order Number: [id number] Reading MD: Jonathan Perera Measurements Intervals [place] Rate: 66 P: 0 WV: 0 QRS: 3 QRSD: 113 T: 32 QT: 593 QTc: 622 Interpretive Statements Junctional rhythm Borderline intraventricular conduction delay Low voltage, precordial leads Borderline repolarization abnormality Prolonged QT interval Electronically Signed On 07-06-2024 8:12:55 PST by Jonathan Perera Please click the below link to view image of tracing.
== END 2024-07-04 18:15 | disposition home or self-care (01) | DRG 671 ==
LOC: ER 19:13 → EDBD 19:13 → OVERFLOW 22:41 → TELE-WESTW 07-02 14:48 → WEST WING 07-03 23:25
PROVIDERS: ADMIT Student in an Organized Health Care Education/Training Program; ATTEND Student in an Organized Health Care Education/Training Program
PROC: 0T9D8ZZ Drainage of Urethra, Via Natural or Artificial Opening Endoscopic (ICD-10-PCS; principal; 2024-07-03 15:35)
DX: N30.01 Acute cystitis with hematuria (principal); I50.42 Chronic combined systolic (congestive) and diastolic (congestive) heart failure; N40.0 Benign prostatic hyperplasia without lower urinary tract symptoms; I11.0 Hypertensive heart disease with heart failure; E87.6 Hypokalemia; I48.91 Unspecified atrial fibrillation; I25.10 Atherosclerotic heart disease of native coronary artery without angina pectoris; N35.819 Other urethral stricture, male, unspecified site; E78.5 Hyperlipidemia, unspecified; I25.2 Old myocardial infarction; Z86.718 Personal history of other venous thrombosis and embolism; Z95.0 Presence of cardiac pacemaker; Z79.01 Long term (current) use of anticoagulants; Z92.3 Personal history of irradiation; Z85.46 Personal history of malignant neoplasm of prostate; Z85.850 Personal history of malignant neoplasm of thyroid; Z87.891 Personal history of nicotine dependence; Z88.6 Allergy status to analgesic agent; Z88.5 Allergy status to narcotic agent; Z88.8 Allergy status to other drugs, medicaments and biological substances; Z80.42 Family history of malignant neoplasm of prostate; Z82.49 Family history of ischemic heart disease and other diseases of the circulatory system
CPT/HCPCS: 36415; 71045; 74176; 80048; 80053; 80307; 81001; 83605; 83735; 83880; 84132; 84439; 84443; 85025; 85610; 85730; 87040; 87086; 87088; 87804; 93005; 93306; 93970; 96365; 97163; G0378; J1100; J2250; J2405; J2470; J2704; J3480